=== PATIENT | female | born 1945 | race Caucasian/White ===

== ENCOUNTER → 2016-11-21 | Outpatient (CLI) | payer OTHER ==
[~2016-11-21] MED LIST: OMEP40CA PO; PRAV40TA2 PO
--- NOTE | 2016-11-21 14:25 | DIAGNOSTIC IMAGING REPORT ---
ULTRASOUND OF THE THYROID GLAND CLINICAL HISTORY: Thyromegaly. COMPARISON STUDY: Thyroid ultrasound dated 10/27/15. TECHNIQUE: Real-time, grayscale, and color flow sonography of the thyroid gland is performed utilizing a high-frequency linear transducer. Images are reviewed in the transverse and longitudinal planes. FINDINGS: Right lobe: The right lobe of the thyroid gland is normal in size and homogeneous in echotexture, measuring 4.3 x 1.7 x 1.5 cm. A 3 mm hypoechoic nodule is seen in the upper pole and a 5 mm colloid cyst is noted in the lower pole. Left lobe: The left lobe of the thyroid gland is normal in size and homogeneous in echotexture, measuring 4.5 x 1.3 x 1.0 cm. 2 hypoechoic nodules are identified measuring up to 5 mm. Isthmus: The thyroid isthmus is normal in appearance and measures 0.4 cm in AP diameter. IMPRESSION: 1. The thyroid gland is normal in size and homogeneous in echotexture. 2. Scattered subcentimeter nodules and a colloid cyst are unchanged from previous. Electronically signed by: Grabiel Salmon M.D. 11/21/2016 2:24 PM Dictated Date/Time: 11/21/2016 2:22 PM
== END | disposition home or self-care (01) ==
LOC: C.ULTR 13:42
PROVIDERS: ATTEND Dermatology
DX: E04.9 Nontoxic goiter, unspecified (principal)

== ENCOUNTER → 2016-12-22 | Outpatient (CLI) | payer OTHER ==
[2016-12-22 17:29] LABS: ALT/SGPT 26 U/L (12-78); BLOOD UREA NITROGEN 13 mg/dl (7-18); CALCIUM 9.3 mg/dl (8.5-10.1); CARBON DIOXIDE 27 mmol/L (21-32); CHLORIDE 105 mmol/L (98-107); CHOLESTEROL 209 mg/dl (0-200); CREATININE 0.93 mg/dl (0.60-1.20); GLUCOSE 80 mg/dl (70-99); SODIUM 139 mmol/L (136-145); TRIGLYCERIDES 117 mg/dl (0-150); VERY LOW DENSITY LIPOPROT CALC 23 mg/dl
[2016-12-22 17:33] LABS: ALB/GLOB RATIO 1.2 (0.9-2); ALKALINE PHOSPHATASE 94 U/L (45-117); AST/SGOT 18 U/L (15-37); CHOLESTEROL/HDL RATIO 2.8; HDL CHOLESTEROL 76 mg/dl; LDL CHOLESTEROL CALCULATED 110 mg/dl
== END ==
LOC: C.LABBFT 13:52
PROVIDERS: ATTEND Internal Medicine
DX: Z11.59 Encounter for screening for other viral diseases (principal); E78.5 Hyperlipidemia, unspecified

== ENCOUNTER → 2017-04-05 | Outpatient (CLI) | payer OTHER ==
--- NOTE | 2017-04-05 15:38 | MAMMOGRAPHY REPORT ---
BILATERAL DIGITAL SCREENING MAMMOGRAM WITH CAD: 04/05/2017 CLINICAL HISTORY: Routine screening. Patient has no complaints. TECHNIQUE: Current study was also evaluated with a Computer Aided Detection (CAD) system. Bilateral CC and MLO views were obtained. COMPARISON: Comparison is made to exams dated: 04/04/2016 mammogram, 04/01/2015 mammogram, 03/31/2014 [facility] mogram, 03/29/2013 mammogram, 03/22/2012 mammogram, and 03/16/2012 mammogram - [facility] er. BREAST COMPOSITION: There are scattered areas of fibroglandular density in both breasts. FINDINGS: No suspicious masses, calcifications, or areas of architectural distortion are noted in ei ther breast. There has been no significant interval change compared to prior exams. Scattered bilater al benign-appearing calcifications are not significantly changed. IMPRESSION: ACR BI-RADS CATEGORY 2: BENIGN There is no mammographic evidence of malignancy. A 1 year screening mammogram is recommended. The pa tient will receive written notification of the results. Approximately 10% of breast cancers are not detected with mammography. A negative mammographic report should not delay biopsy if a clinically suggestive mass is present. Ailyn Dawn M.D. ah/:04/05/2017 15:19:16 Hot Saw Helper: Keyana NICHOLS(R)(M), [facility] letter sent: Normal 1/2 BI-RADS Code: ACR BI-RADS Category 2: Benign
== END | disposition home or self-care (01) ==
LOC: C.MAMM 14:21
PROVIDERS: ATTEND Internal Medicine
DX: Z12.31 Encounter for screening mammogram for malignant neoplasm of breast (principal)

== ENCOUNTER → 2017-12-05 | Outpatient (CLI) | payer OTHER ==
--- NOTE | 2017-12-05 13:48 | DIAGNOSTIC IMAGING REPORT ---
SOFT TISS HEAD/NECK-THYROID CLINICAL HISTORY: 72 years-old Female with MULTIPLE THYROID NODULES E04.2. Follow-up study in a patient with multiple thyroid nodules COMPARISON: Thyroid ultrasound 11/21/2016 TECHNIQUE: Multiple real time sonographic images of the thyroid were obtained accessing shaw scale appearance and color doppler flow. FINDINGS: MEASUREMENTS: Right lobe: 4.0 x 1.6 x 1.3 cm Left lobe: 4.3 x 1.2 x 1.0 cm Isthmus: 0.4 cm PARENCHYMA: The thyroid parenchymal echotexture is generally homogeneous. NODULES: There are several subcentimeter hypoechoic and cystic-appearing lesions present bilaterally with the cystic lesions demonstrating internal echogenic nonshadowing foci suggesting colloid cysts measuring up to 0.4 cm. No suspicious thyroid nodules are identified. IMPRESSION: 1. Generally homogeneous appearance of the thyroid. 2. Several hypoechoic lesions of the bilateral thyroid lobes suggests colloid cysts. No suspicious thyroid nodules are identified. The above report was generated using voice recognition software. It may contain grammatical, syntax or spelling errors. Electronically signed by: Alfie Babb M.D. 12/05/2017 1:47 PM Dictated Date/Time: 12/05/2017 1:44 PM
== END | disposition home or self-care (01) ==
LOC: C.ULTR 13:15
DX: E04.2 Nontoxic multinodular goiter (principal)

== ENCOUNTER → 2017-12-28 | Outpatient (CLI) | payer OTHER ==
[2017-12-28 16:35] LABS: BASO % 0.6 %; BASO ABS # 0.05 K/uL (0-0.2); EOS % 1.3 %; EOS ABS # 0.12 K/uL (0-0.5); HEMATOCRIT 44.8 % (37-47); HEMOGLOBIN 14.6 g/dL (12.0-16.0); IG# 0.02 K/uL (0.00-0.02); LYMPH % 29.8 %; LYMPH ABS # 2.68 K/uL (1.2-3.4); MEAN CORPUSCULAR HGB CONC 32.6 g/dl (32-36); MEAN PLATELET VOLUME 10.6 fL (7.4-10.4); MONO % 8.7 %; MONO ABS # 0.78 K/uL (0.11-0.59); NEUT % 59.4 %; NEUT ABS # 5.33 K/uL (1.4-6.5); PLATELET COUNT 258 K/uL (130-400); RED CELL DISTRIBUTION WIDTH CV 13.5 % (11.5-14.5); RED CELL DISTRIBUTION WIDTH SD 45.5 fL (36.4-46.3); WHITE BLOOD COUNT 8.98 K/uL (4.8-10.8)
[2017-12-28 16:42] LABS: ALBUMIN 3.9 gm/dl (3.4-5.0); ALT/SGPT 25 U/L (12-78); AST/SGOT 19 U/L (15-37); BLOOD UREA NITROGEN 16 mg/dl (7-18); CARBON DIOXIDE 26 mmol/L (21-32); CHOLESTEROL 228 mg/dl (0-200); GLUCOSE 85 mg/dl (70-99); POTASSIUM 4.1 mmol/L (3.5-5.1); SODIUM 136 mmol/L (136-145)
[2017-12-28 16:52] LABS: ALKALINE PHOSPHATASE 96 U/L (45-117); LDL CHOLESTEROL CALCULATED 121 mg/dl; TOTAL PROTEIN 7.4 gm/dl (6.4-8.2)
== END | disposition home or self-care (01) ==
LOC: C.LABBFT 13:28
PROVIDERS: ATTEND Internal Medicine
DX: E78.5 Hyperlipidemia, unspecified (principal)

== ENCOUNTER 2020-12-21 05:04 | Observation (INO) ==
--- NOTE | 2020-11-20 11:22 | PAT Medication Instructions ---
Medication Instructions Date of Service November 20, 2020 Home Medications Medication Instructions Recorded warfarin 5 mg tablet 5 mg PO .COMPLEX #120 tab 10/01/20 3-in-1 Commode #1 ea 10/21/20 3-in-1 Commode #1 ea 10/21/20 Wheeled Walker #1 ea 10/21/20 warfarin 5 mg tablet 5 mg PO .COMPLEX cholecalciferol (vitamin D3) 2,000 unit PO BID naproxen sodium [Aleve] 220 mg PO BID PRN pravastatin 40 mg PO HS ASK your surgeon for instructions naproxen sodium [Aleve] 220 mg PO BID PRN ASK your prescriber and surgeon warfarin 5 mg tablet 5 mg PO .COMPLEX DO NOT take the morning of surgery cholecalciferol (vitamin D3) 2,000 unit PO BID Take evening before surgery cholecalciferol (vitamin D3) 2,000 unit PO BID pravastatin 40 mg PO HS Other Notes If you have any questions please call us at [phone] or [phone] or [phone] or [phone]
--- NOTE | 2020-11-23 10:13 | Anesthesiology Consultation ---
Date of Service November 23, 2020 Assessment & Plan (1) Encounter for pre-operative examination: - Per assessment on 11/23: Travel screen negative. No known COVID-19 positive contacts or current COVID-19 related symptoms. Surgeon arranging preop COVID testing (scheduled 12/14; RD). Awaiting results. - PCP office visit: 09/30/20: Due for DEXA scan update (order placed). Aware of upcoming hip surgery. - Check coags AM DOS Chart Review Chart Review: Acceptable Risk for Surgery and Patient seen in Pre Admission Testing Teaching & Discussion Pre-Anesthesia Teaching/Discussion Notes: Instructed NPO after midnight before surgery,except medications with 15 cc of water. Medication instructions provided according to the PAT guidelines. History Surgery Operation Date: 12/21/20 10:55 Proposed Procedures p Left Total Hip Arthroplasty - Regis Chavez MD Height/Weight Height: 5 ft 4 in Weight: 83.6 kg Allergies Allergy/AdvReac Type Severity Reaction Status Date / Time No Known Allergies Allergy Mild Verified 11/17/20 09:48 Medications Home Medications Medication Instructions Recorded Confirmed Last Taken warfarin 5 mg tablet 5 mg PO .COMPLEX #120 tab 10/01/20 11/17/20 Unknown 3-in-1 Commode #1 ea 10/21/20 10/21/20 Unknown 3-in-1 Commode #1 ea 10/21/20 10/21/20 Unknown Wheeled Walker #1 ea 10/21/20 10/21/20 Unknown cholecalciferol (vitamin D3) 2,000 unit PO BID 11/17/20 11/17/20 Unknown naproxen sodium [Aleve] 220 mg PO BID PRN 11/17/20 11/17/20 Unknown pravastatin 40 mg PO HS 11/17/20 11/17/20 Unknown Past Medical History Medical History Chronic obstructive pulmonary disease stable Dvt femoral (deep venous thrombosis) Recurrent RLE (unprovoked)- remote hx GERD (gastroesophageal reflux disease) controlled Hearing loss Hyperlipidemia Migraine hx Osteoporosis Pulmonary nodule Per records Exercise / Class Metabolic Activity III < 4 Walking/Shop/Light housework Past Family History Family History Mother Ovarian cancer Alzheimer disease Glaucoma Family/Other Diabetes COUSINS Coronary heart disease Hypercholesterolemia Breast cancer Hypertension Thyroid disorder Father Lung cancer Brother Celiac disease Son Substance abuse Other Family history non-contributory Denies family history of Prostate cancer Myocardial infarction Colorectal cancer Past Surgical History Surgical History History of colonoscopy History of esophagogastroduodenoscopy (EGD) No history of previous surgery Past Anesthesia History No Hx of Anesthesia Complications and No Family Hx of Anesthesia Complications Social History Smoking Status: Former smoker Do You Dip or Chew Tobacco: No Smoking End Date: Quit 2000 (hx PPD x 40 years) Hx Alcohol Use: No Hx Substance Use: No Review of Systems No snoring. Patient denies chest pain, shortness of breath, fever, chills, cough, wheezing, palpitations. Physical Exam Vital Signs VITALS BP 129/70 P 74 TEMP 97.9 SP02 93%RA RESP 16 PHYSICAL Full neck and c-spine range of motion. Full TMJ range of motion. TMD 3 finger breaths Mallampati Score 3 Dentition: full dentures upper/lower Lungs: clear throughout to auscultation Cardiac: regular rate and rhythm, no murmurs noted Spine: normal Carotid arteries: negative bruit Extremities: no edema Testing Laboratory Results 11/23/20 11:36 11/23/20 10:36 PT 17.2 Seconds (9.0-12.0) H 11/23/20 11:36 INR 1.8 (0.9-1.1) H 11/23/20 11:36 APTT 31.8 Seconds (21.0-31.0) H 11/23/20 11:36 Blood Type A Positive 11/23/20 11:36 Antibody Screen NEGATIVE 11/23/20 11:36 Electrocardiogram Date: 11/23/20 Findings: + NSR @ (68) Chest X-Ray Date: 11/23/20 FINDINGS: Lung volumes are normal. Lungs are clear. There is no pneumothorax or pleural effusion. Cardiac size is normal. Mediastinal contours are normal. There is no evidence for pulmonary edema. Emphysema is better depicted on prior chest CT. IMPRESSION: No acute cardiopulmonary findings. Emphysema.
--- NOTE | 2020-11-23 11:09 | XRay Report ---
XR chest Pre-admission PA/Lat CLINICAL HISTORY: Preoperative evaluation. COMPARISON STUDY: Chest CT March 12, 2020. FINDINGS: Lung volumes are normal. Lungs are clear. There is no pneumothorax or pleural effusion. Car diac size is normal. Mediastinal contours are normal. There is no evidence for pulmonary edema. Emphy sema is better depicted on prior chest CT. IMPRESSION: 1. No acute cardiopulmonary findings. 2. Emphysema. ACT 112: Negative or not required by law. Electronically signed by: Goldy Parada M.D. 11/23/2020 11:07 AM
[2020-11-23 12:06] LABS: Basophils # (auto) 0.05 K/uL (0-0.2); Basophils % (auto) 0.7 %; Eosinophils # (auto) 0.15 K/uL (0-0.5); Eosinophils % (auto) 2.2 %; Hematocrit (blood only) 46.8 % (37-47); Hemoglobin 15.4 g/dL (12.0-16.0); Immature Granulocytes # (auto) 0.03 K/uL (0.00-0.02); Immature Granulocytes % (auto) 0.4 %; Lymphocytes # (auto) 1.66 K/uL (1.2-3.4); Lymphocytes % (auto) 24.7 %; Mean Corpuscular Hemoglobin 30.8 pg (25-34); Mean Corpuscular Hgb Conc 32.9 g/dL (32-36); Mean Corpuscular Volume 93.6 fL (80-100); Monocytes # (auto) 0.52 K/uL (0.11-0.59); Monocytes % (auto) 7.7 %; Neutrophils % (auto) 64.3 %; Platelet Count 252 K/uL (130-400); RDW Coefficient of Variation 13.7 % (11.5-14.5); White Blood Count 6.71 K/uL (4.8-10.8)
[2020-11-23 12:16] LABS: INR 1.8 (0.9-1.1); Partial Thromboplastin Ratio 1.2; Partial Thromboplastin Time 31.8 Seconds (21.0-31.0); Prothrombin Time 17.2 Seconds (9.0-12.0)
[2020-11-23 13:31] LABS: BUN Creatinine Ratio 14.3 (10-20); Calcium 9.3 mg/dl (8.5-10.1); Creatinine Clr Calc Pharmacy 50.3 ml/min; Est GFR (African American) 63.1; Est GFR (Non-African American) 54.4; Potassium 4.3 mmol/L (3.5-5.1)
--- NOTE | 2020-11-23 14:24 | Electrocardiogram Report ---
Test Reason : Blood Pressure : / mmHG Vent. Rate : 068 BPM Atrial Rate : 068 BPM P-R Int : 188 ms QRS Dur : 078 ms QT Int : 422 ms P-R-T Axes : 078 066 075 degrees QTc Int : 448 ms Normal sinus rhythm Normal ECG When compared with ECG of 08-AUG-2018 19:29, No significant change was found Confirmed by Jackson Doyle ([id number]) on 11/23/2020 2:23:38 PM Referred By: Regis Chavez Confirmed By:Jackson Doyle
--- NOTE | 2020-12-18 20:25 | History and Physical Report ---
DATE OF ADMISSION: 12/21/2020 CHIEF COMPLAINT: Persistent left hip pain and discomfort. HISTORY OF PRESENT ILLNESS: The patient is a 75-year-old female who presents now for surgical treatment of her left hip. She has a several year history of gradually increasing left hip pain and discomfort. I saw her several months ago, put a shot on the lateral side of her hip, which helped her just a little bit. She continues to be bothered by pain. It has increased significantly over the past year. She has had to resort to using a cane to get around due to the pain. The pain is mostly in the groin and lateral hip area. No numbness or radicular symptoms. She limps more as the day goes on. She would really like to have this fixed. PAST MEDICAL HISTORY: Significant for, 1. Questions DVT in the past, currently on Coumadin. 2. Elevated cholesterol. 3. COPD. 4. Hypothyroidism. 5. Obesity with BMI of 32. PREVIOUS SURGERIES: None. ALLERGIES: None. CURRENT MEDICATIONS: Include, 1. Vitamin D3. 2. Pravastatin. 3. Coumadin 5 mg a day. SOCIAL HISTORY: A 75-year-old female. Lives by herself. Lives in [place]. Does not smoke. No significant alcohol intake. FAMILY HISTORY: Noncontributory. REVIEW OF SYSTEMS: Negative for diabetes. Denies any chest pain or shortness of breath. She has a questionable history of DVT. No known clotting disorders. She is on Coumadin. PHYSICAL EXAMINATION: GENERAL: Reveals a pleasant elderly female. Looks to be in reasonable health. HEENT: Benign. NECK: Supple, no lymphadenopathy. LUNGS: Clear to auscultation. HEART: Has a regular rate and rhythm. ABDOMEN: Soft, nontender, nondistended. EXTREMITIES: Grossly neurovascularly intact except as follows: Examination of the left hip reveals the patient walks with a markedly antalgic gait. Comes in using a cane. She clearly limps on the left side. Leg lengths appear pretty equal. She has got pain and stiffness with any type of hip motion, particularly internal rotation. I can internally rotate to neutral. Negative straight leg raise. No knee effusion. She is neurologically intact. X-RAYS: X-rays of the left hip were reviewed. It shows advanced left hip DJD. She has complete loss of superior joint space. Diffuse osteopenia. 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 This is significantly limiting her ability to maintain an active lifestyle and independent lifestyle, and she would like to have this fixed. PLAN: We are going to take her to the operating room and do a left total hip replacement. If there is an abductor mechanism avulsion, we will try and repair that as well. The risks and benefits of left total hip replacement were explained to the patient including but not limited to DVT, PE, , infection, neurological injury, vascular injury, bleeding problem, pain, limited range of motion, stiffness, failure to relieve her symptoms, incomplete relief of symptoms, need for further surgery in the future, fracture, leg length inequality, nerve palsy, dislocation, etc. The patient understands and desires to proceed. Informed consent was obtained. We will have a cemented stem available as her bone is pretty osteoporotic on x-ray. She will stop her Coumadin 5 days preop. We will likely put her on some prophylactic Lovenox right after surgery until the Coumadin is more therapeutic. As far as discharge plans, she will likely need to go to rehab for a while.
[2020-12-21] MEDS ORDERED: METOCLOPRAMIDE HCL 10 MG TABLET PO SCH (06:00)
[2020-12-21] MEDS ORDERED: FAMOTIDINE 20 MG TAB PO SCH (06:00)
[2020-12-21] MEDS ORDERED: LR 500ML BOLUS, THEN 15ML/HR IV SCH (06:00)
[2020-12-21] MEDS ORDERED: ACETAMINOPHEN 500 MG TAB PO SCH (06:00)
[2020-12-21] MEDS ORDERED: ceFAZolin 2000MG 2,000 MG/15 ML SYR IV SCH (06:00)
[2020-12-21] MEDS ORDERED: GABAPENTIN 300 MG CAP PO SCH (06:00)
[2020-12-21] MEDS ORDERED: LR 60ML/HR IV SCH (06:00)
[2020-12-21 06:26] LABS: Partial Thromboplastin Ratio 0.9; Partial Thromboplastin Time 24.2 Seconds (21.0-31.0); Prothrombin Time 10.3 Seconds (9.0-12.0)
[2020-12-21] MEDS ORDERED: BACITRACIN INJ 50,000 UNIT VIAL ONE (06:31)
[2020-12-21] MEDS ORDERED: BUPIVACAINE/EPINEPHRINE 0.5% MPF 1:200,000 30 ML VIAL ONE (06:31)
[2020-12-21] MEDS ORDERED: BUPIVACAINE 0.5 % 5 MG/1 ML PF 10ML VIAL ONE (06:40)
[2020-12-21] MEDS ORDERED: PROPOFOL IV EMULSION 10 MG/ML 20 ML VIAL IV ONE (06:43)
[2020-12-21] MEDS ORDERED: MIDAZOLAM HCL 1 MG/ML 2ML VIAL ONE (06:43)
[2020-12-21] MEDS ORDERED: fentaNYL citrate 100 MCG/2 ML VIAL ONE (06:43)
[2020-12-21] MEDS ORDERED: LIDOCAINE HCL 2% 2 ML VIAL/AMP(20MG/ML) INFIL ONE (06:43)
--- NOTE | 2020-12-21 06:51 | History & Physical Bridge Note ---
Date of Service December 21, 2020 History & Physical Bridge Note I have examined the patient, reviewed the History & Physical and in the interval since the performance of the History & Physical I have noted the following changes of clinical significance: no changes noted
[2020-12-21] MEDS ORDERED: fentaNYL citrate 100 MCG/2 ML VIAL IV PRN (07:16)
[2020-12-21] MEDS ORDERED: ePHEDrine sulfate 50 MG/ML AMP IV PRN (07:16)
[2020-12-21] MEDS ORDERED: ATROPINE SULFATE 0.1 MG/ML 10ML SYR IV PRN (07:16)
[2020-12-21] MEDS ORDERED: ONDANSETRON INJ 2 MG/ML 2 ML VIAL IV PRN ×2 (07:16→09:46)
[2020-12-21] MEDS ORDERED: TRANEXAMIC ACID / 0.7% NACL 1000MG/100ML BAG IV ONE (07:25)
[2020-12-21] MEDS ORDERED: TRANEXAMIC ACID / 0.7% NACL 1,000 MG/100 ML BAG IV ONE (07:27)
[2020-12-21] MEDS ORDERED: ePHEDrine sulfate 50 MG/ML SYR ONE (07:40)
--- NOTE | 2020-12-21 09:04 | Operative Report ---
Post Operative Report Pre & Post Diagnosis Operation Date: 12/21/20 07:00 Pre-Op Diagnosis: Left Hip Degenerative Joint Disease Post-Op Diagnosis: Left Hip Degenerative Joint Disease I identified the patient and participated in the time-out.: Yes Procedure Operation Date: 12/21/20 07:00 Actual Procedures p Left hybrid total Hip Arthroplasty, Cemented(Left) - Regis Chavez MD Surgeon Regis Chavez MD Box Toe Cementer JANET Benoit Estimated Blood Loss 200 Findings Consistent with Post-Op Diagnosis Operative findings were advanced left hip DJD. She had a very osteopenic bone. She had advanced grade 4 [id number] disease. Fairly large anterior acetabular osteophyte. Moderate-sized joint effusion. Fluids 1100 cc. Specimens Left femoral head sent for pathology. Drains None. Complications none Disposition Accompanied Patient To Recovery: Yes Disposition: Recovery Room Indications Patient is 75-year-old female has had a several year history of increasing left hip pain discomfort describes gotten worse to the point where she had use a cane to get around. She has difficulty ambulating and living in independent lifestyle as she continues to live by herself. X-rays show advanced left hip arthritis. She elected proceed with total hip arthroplasty. Description of Procedure Operative implants consist of: 1. Biomet G7 size 52 mm acetabular shell. 2. 6.5 cancellous acetabular screws 135 mm length 120 mm length. 3. [place] hole medication coordinator. 4. Highly cross-linked polyethylene liner with a 52 mm outer diameter and 36 mm diameter. 5. DePuy Caret size 5 standard femoral cemented stem. 6. +8.5/36 mm metal articular ball. 7. 11 mm distal cement centralizer. 8. Small cement restrictor. The patient was taken to the operating room, identified, placed on the operating table supine position but all contact areas were properly padded. IV an tibiotics tried by anesthesia team. A spinal anesthetic and been implemented in the holding area. Miller catheter was placed in sterile fashion. Patient then placed in the right lateral decubitus position. An axillary roll was placed. Stulberg hip positioner was used for positioning. Left hip and leg were then prepped and draped in usual sterile fashion. A posterior lateral approach of the left hip was then performed to a curvilinear incision centered over the greater trochanter. Sharp dissection was got through subcutaneous tissues down to level the IT band gluteal fascia. She had a fairly thick subcutaneous fat envelope. The IT band gluteal fascia then incised longitudinally in line with skin incision. The underlying greater truck bursa was excised. The piriformis and external rotators were tagged and taken off the posterior aspect the hip joint. Great care was taken throughout the procedure protect the sciatic nerve at all times. A posterior capsulotomy was then performed leaving a large flap for later repair. Hip was internally rotated and dislocated. Femoral neck osteotomy cut was made with Final Cut about 15 mm above the lesser trochanter. She had a very valgus neck with very little offset. The femur was retracted anteriorly. Attention drawn the acetabulum. The acetabular labrum was excised per the pulmonary fat was excised. Sequential reaming the acetabular was then performed again with a size 43 and progressing up to 51. I did reamed this a little bit with the 52 reamer. Her bone was pretty osteopenic. A 52 mm Biomet G7 acetabular shell was then placed in about 40 degrees lateral opening and 20 degrees of anteversion. Was fixed with two 6.5 cancellous acetabular screws. Some fairly large anterior osteophytes were removed. Trial liner was placed. Attention drawn the femur. The proximal femur was entered with a cookie-cutter followed by canal finder. I broached begin the size at 2 and progressing up to 5. We got pretty good fit wi th a 5 but her bone was very osteopenic. I did not want a breach to the cortex as we stop there. We trialed the hip and the +8.5 the hip provided appropriate soft tissue tension and excellent stability. She probably did increase her offset but did not increase the length. We elect to place these implants. All trial implants were removed. An apex hole medication coordinator was placed. Highly cross-linked polyethylene liner was placed. A small cement restrictor was then placed down the IM canal. The IM canal was washed. I dried it as best as possible. A double batch [place] G cement was then mixed and injected in the canal and a size 5 Caret cemented/collared femoral stem with a standard offset neck angle was then placed. I held this until the cement hardened. We then placed a 8.5/36 mm metal articular ball and hip was located. Was found to be stable. Attention drawn toward closing. Nupathe wounds irrigated with copious amounts of pulsatile lavage solution. I injected locally with 60 cc of half percent Marcaine with epinephrine. The posterior capsule and external rotators were then repaired through drill holes in the posterior trochanter with #2 Tycron suture. The IT band gluteal fascia then closed in 1 PDS suture running fashion for subcutaneous tissue then closed with 2 layers with a deep layer #2 Vicryl suture in the subcutaneous tissues with 2 Dexon suture in a buried interrupted fashion the skin was closed skin yao. Leg was then cleaned and dried. A sterile Prevena VAC dressing was applied due to her very thick soft tissue envelope and increased risk for drainage. The patient was then transferred to the recovery room in stable condition. Patient tolerated procedure well and there are no complications. Ryan Benoit, my physician fast food sales assistant, was present for the entire procedure. His assistance was essential and required for appropriate patient positioning, prepping and draping, surgical exposure, performing the technical details of the operation, placement the implants, closure of the wound, and placement of the sterile bandage. I attest to the content of the Intraoperative Record and any orders documented therein. Any exceptions are noted below.
--- NOTE | 2020-12-21 09:20 | XRay Report ---
AP PELVIS, CROSSTABLE LATERAL LEFT HIP History: Left total hip arthroplasty. Degenerative arthritis. Postop. FINDINGS: The patient is status post a left total hip arthroplasty. The hardware is intact. No fractu re or dislocation. Skin yao are in place. IMPRESSION: Left total hip arthroplasty. No evidence for hardware complication. ACT 112: Negative or not required by law. Electronically signed by: Derik Linares M.D. 12/21/2020 9:18 AM
--- NOTE | 2020-12-21 09:32 | Anesthesiology Progress Note ---
Date of Service December 21, 2020 Anesthesia Post Procedure Vital Signs Vital Signs: Temp Pulse Pulse Resp BP BP Pulse Ox 12/21/20 09:20 71 18 120/54 L 94 12/21/20 09:10 75 14 110/57 L 98 12/21/20 09:00 75 13 131/59 L 100 12/21/20 08:50 36.9 C 85 16 111/57 L 97 12/21/20 06:27 36.8 C 54 L 20 145/67 H 92 12/21/20 05:47 36.6 C 76 20 158/82 H 93 Transfer of Care Handoff Completed per policy Notes Mental Status: alert / awake / arousable and participated in evaluation Nausea / Vomiting: adequately controlled Pain: adequately controlled Airway Patency, RR, SpO2: stable & adequate BP & HR: stable & adequate Hydration State: stable & adequate Neuraxial Anesthesia: was administered and sensory block is resolving Anesthetic Complications: no major complications apparent and Pt Satisfied with anesthetic care
[2020-12-21] MEDS ORDERED: NALOXONE HCL 0.4 MG/1 ML VIAL/CARP IV PRN (09:46)
[2020-12-21] MEDS ORDERED: bisacodyL 10 MG SUPP PR PRN (09:46)
[2020-12-21] MEDS ORDERED: HYDROmorphone INJ 0.5 MG/0.5 ML SYR IV PRN (09:46)
[2020-12-21] MEDS ORDERED: METOCLOPRAMIDE HCL INJ 5 MG/ML 2 ML VIAL IV PRN (09:46)
[2020-12-21] MEDS ORDERED: MAGNESIUM HYDROXIDE SUSP 30 ML UDC PO PRN (09:46)
[2020-12-21] MEDS ORDERED: traMADol HCL 50 MG TABLET PO PRN (09:46)
[2020-12-21] MEDS: SODIUM CHLORIDE 0.9% 1000ML 1,000 ML IV SCH ×2 (10:09→21:26)
[2020-12-21] MEDS: CHOLECALCIFEROL 1,000 UNITS 25 MCG TAB PO SCH ×2 (11:02→21:26)
[2020-12-21] MEDS: KETOROLAC TROMETHAMINE 15 MG/ML VIAL IV SCH ×2 (11:02→17:36)
[2020-12-21] MEDS: MULTIVITAMIN TAB PO SCH (11:02)
[2020-12-21] MEDS: DOCUSATE SODIUM 100 MG CAP PO SCH ×2 (11:02→21:26)
[2020-12-21] MEDS: ACETAMINOPHEN 500 MG TAB PO SCH ×2 (14:03→22:28)
[2020-12-21] MEDS ORDERED: TRANEXAMIC ACID / 0.7% NACL 1,000 MG/100 ML BAG IV SCH (14:52)
--- NOTE | 2020-12-21 15:10 | Progress Notes ---
DATE: 12/21/2020 SUBJECTIVE: A 75-year-old white female postop from a left hybrid total hip arthroplasty. She is doing well. Really not having any pain yet. No chest pain or shortness of breath. Not feeling dizzy or lightheaded. OBJECTIVE: VITAL SIGNS: Temperature 36.3. Vital signs stable. GENERAL: Shows a pleasant elderly female. She is sitting up in bed, looks pretty comfortable. LUNGS: Clear to auscultation. HEART: Has a regular rate and rhythm. ABDOMEN: Soft, nontender, nondistended. EXTREMITIES: Grossly neurovascularly intact except as follows. Examination of the left leg reveals the leg to be appropriately aligned. Leg lengths are equal. Dressing is clean, dry and intact. Thigh is soft and supple. She can dorsiflex and plantarflex her foot appropriately. X-RAYS: X-rays of the left hip from recovery room reviewed. It shows left hybrid total hip arthroplasty. Components looked to be in good position. No signs of problems. ASSESSMENT: A 75-year-old female postop from a hybrid total hip replacement, doing pretty well. Her pain is controlled. Hip is located. She is neurologically intact. PLAN: 1. DVT prophylaxis including thigh-high TEDs, SCDs, and back on her Coumadin starting tonight. We will give her a loading dose of 7.5. Check an INR in the morning. 2. PT/OT. Weight bear as tolerated. Left total hip protocol. 3. Pain control, doing okay with current pain regimen. 4. IV antibiotics x24 hours. 5. Disposition: She lives by herself and she is going to need a rehab stay or detention facility stay. We will have social media marketer working on this.
[2020-12-21] MEDS: ceFAZolin 2000MG 2,000 MG/15 ML SYR IV SCH (15:59)
[2020-12-21] MEDS ORDERED: WARFARIN SOD 7.5 MG TAB PO ONE (16:00)
[2020-12-21] MEDS: FERROUS GLUCONATE 324 MG TAB PO SCH (17:36)
[2020-12-21] MEDS: ASCORBIC ACID 500 MG TAB PO SCH (17:36)
[2020-12-21] MEDS: SENNA 8.6 MG TAB PO SCH (21:26)
[2020-12-21] MEDS: PRAVASTATIN SOD 40 MG TAB PO SCH (21:26)
[2020-12-22] MEDS: ceFAZolin 2000MG 2,000 MG/15 ML SYR IV SCH (00:17)
[2020-12-22] MEDS: KETOROLAC TROMETHAMINE 15 MG/ML VIAL IV SCH ×5 (00:17→23:54)
[2020-12-22] MEDS: SODIUM CHLORIDE 0.9% 1000ML 1,000 ML IV SCH (05:59)
[2020-12-22] MEDS: ACETAMINOPHEN 500 MG TAB PO SCH ×3 (05:59→21:39)
[2020-12-22 06:34] LABS: Basophils # (auto) 0.02 K/uL (0-0.2); Basophils % (auto) 0.2 %; Eosinophils # (auto) 0.07 K/uL (0-0.5); Eosinophils % (auto) 0.6 %; Hematocrit (blood only) 39.4 % (37-47); Hemoglobin 13.4 g/dL (12.0-16.0); Immature Granulocytes # (auto) 0.01 K/uL (0.00-0.02); Immature Granulocytes % (auto) 0.1 %; Lymphocytes # (auto) 2.11 K/uL (1.2-3.4); Lymphocytes % (auto) 18.5 %; Mean Corpuscular Hemoglobin 30.9 pg (25-34); Mean Platelet Volume 9.6 fL (7.4-10.4); Monocytes # (auto) 1.02 K/uL (0.11-0.59); Monocytes % (auto) 8.9 %; Neutrophils # (auto) 8.19 K/uL (1.4-6.5); Neutrophils % (auto) 71.7 %; Platelet Count 210 K/uL (130-400); RDW Coefficient of Variation 13.8 % (11.5-14.5); RDW Standard Deviation 45.9 fL (36.4-46.3); Red Blood Count 4.33 M/uL (4.2-5.4); White Blood Count 11.42 K/uL (4.8-10.8)
[2020-12-22 06:37] LABS: INR 1.2 (0.9-1.1); Prothrombin Time 11.9 Seconds (9.0-12.0)
[2020-12-22 07:05] LABS: BUN Creatinine Ratio 13.4 (10-20); Calcium 8.6 mg/dl (8.5-10.1); Creatinine Clr Calc Pharmacy 57.1 ml/min; Est GFR (African American) 73.5; Est GFR (Non-African American) 63.4; Potassium 3.7 mmol/L (3.5-5.1)
[2020-12-22] MEDS ORDERED: dexAMETHasone 4 MG TAB PO SCH (08:00)
--- NOTE | 2020-12-22 08:04 | Anesthesiology Progress Note ---
Date of Service December 22, 2020 Anesthesia Post Procedure Vital Signs Vital Signs: Temp Pulse Pulse Resp BP Pulse Ox 12/22/20 07:25 36.5 C 75 18 153/78 H 94 12/22/20 02:25 36.7 C 90 16 160/87 H 91 12/21/20 22:38 36.6 C 82 15 157/80 H 93 12/21/20 19:41 36.4 C L 85 16 130/69 92 12/21/20 15:31 36.3 C L 70 18 145/83 H 93 12/21/20 12:48 36.3 C L 79 16 120/69 95 12/21/20 11:41 36.2 C L 67 18 103/64 94 12/21/20 10:48 36.3 C L 83 16 120/70 93 12/21/20 10:30 36.3 C L 70 16 101/59 L 93 12/21/20 10:12 61 16 121/62 95 12/21/20 09:45 66 16 105/61 92 12/21/20 09:40 36.5 C 61 18 121/51 L 94 12/21/20 09:30 36.5 C 69 18 110/64 94 12/21/20 09:20 71 18 120/54 L 94 12/21/20 09:10 75 14 110/57 L 98 12/21/20 09:00 75 13 131/59 L 100 12/21/20 08:50 36.9 C 85 16 111/57 L 97 Notes Mental Status: alert / awake / arousable Nausea / Vomiting: adequately controlled Pain: adequately controlled Airway Patency, RR, SpO2: stable & adequate BP & HR: stable & adequate Hydration State: stable & adequate Neuraxial Anesthesia: was administered and sensory block resolved Anesthetic Complications: no major complications apparent and Pt Satisfied with anesthetic care
[2020-12-22] MEDS: DOCUSATE SODIUM 100 MG CAP PO SCH ×2 (08:42→20:43)
[2020-12-22] MEDS: ASCORBIC ACID 500 MG TAB PO SCH ×2 (08:42→17:18)
[2020-12-22] MEDS: FERROUS GLUCONATE 324 MG TAB PO SCH ×2 (08:42→17:18)
[2020-12-22] MEDS: MULTIVITAMIN TAB PO SCH (08:43)
[2020-12-22] MEDS: CHOLECALCIFEROL 1,000 UNITS 25 MCG TAB PO SCH ×2 (08:43→20:44)
--- NOTE | 2020-12-22 10:27 | Progress Notes ---
DATE: 12/22/2020 SUBJECTIVE: A 75-year-old white female postop day 1 from a left hybrid total hip arthroplasty. She is doing well. Reports no pain. No chest pain or shortness of breath. Not feeling dizzy or lightheaded. OBJECTIVE: VITAL SIGNS: Temperature is 36.5. Vital signs stable. GENERAL: Shows a pleasant elderly female. She is sitting up in her bedside chair, looks quite comfortable. EXTREMITIES: Examination of the left hip reveals the dressing to be clean, dry and intact. Leg lengths were equal. Hip is located. She is neurologically intact. LABORATORY DATA: Hemoglobin 13.4. Hematocrit 39.4. INR is 1.2. Electrolytes are stable. ASSESSMENT: A 75-year-old white female postoperative day 1 from a left hybrid total hip arthroplasty, doing well. Pain is very well controlled. Hip is located. She is neurologically intact. PLAN: 1. DVT prophylaxis including thigh-high TEDs, SCDs, and she is back on Coumadin. 2. PT/OT. She will weightbear as tolerated. Left total hip protocol. 3. Pain control, doing well with current pain regimen. 4. Disposition: She is going to need either rehab or prison facility stay. Social service is working on this. Medically, she looks fairly stable and ready for discharge at any time. Arrangements can be made.
[2020-12-22] MEDS: ALUMINUM/MAGNESIUM SUSP 30 ML UDC PO PRN ×2 (12:09→19:25)
[2020-12-22] MEDS ORDERED: WARFARIN SOD 7.5 MG TAB PO SCH (16:00)
[2020-12-22] MEDS: SENNA 8.6 MG TAB PO SCH (20:43)
[2020-12-22] MEDS: PRAVASTATIN SOD 40 MG TAB PO SCH (20:44)
[2020-12-23] MEDS: ALUMINUM/MAGNESIUM SUSP 30 ML UDC PO PRN (04:04)
[2020-12-23] MEDS: KETOROLAC TROMETHAMINE 15 MG/ML VIAL IV SCH (05:36)
[2020-12-23] MEDS: ACETAMINOPHEN 500 MG TAB PO SCH (05:36)
[2020-12-23 06:16] LABS: Prothrombin Time 19.3 Seconds (9.0-12.0)
[2020-12-23] MEDS: DOCUSATE SODIUM 100 MG CAP PO SCH (08:35)
[2020-12-23] MEDS: ASCORBIC ACID 500 MG TAB PO SCH (08:35)
[2020-12-23] MEDS: FERROUS GLUCONATE 324 MG TAB PO SCH (08:35)
[2020-12-23] MEDS: MULTIVITAMIN TAB PO SCH (08:35)
[2020-12-23] MEDS: CHOLECALCIFEROL 1,000 UNITS 25 MCG TAB PO SCH (08:36)
[2020-12-23] MEDS ORDERED: PANTOprazole 40 MG TAB PO SCH (09:00)
--- NOTE | 2020-12-23 09:12 | Progress Notes ---
DATE: 12/23/2020 SUBJECTIVE: A 75-year-old white female postop day 2 from a hybrid total hip arthroplasty. She is doing pretty well. No real hip pain. No new complaints. She continues to have a little bit of heartburn and reflux. Does respond to the Maalox. No other complaints. No chest pain or shortness of breath. OBJECTIVE: VITAL SIGNS: Temperature 36.5. Vital signs stable. GENERAL: Shows a pleasant elderly female. She is lying in bed, looks pretty comfortable. EXTREMITIES: Examination of the left leg reveals the leg lengths to be equal. Her Prevena VAC dressing is clean, dry and intact. It is working appropriately. Thigh is soft and supple. She is neurologically intact. LABORATORY DATA: INR is 2.0. ASSESSMENT: A 75-year-old white female postop day 2 from a hybrid total hip arthroplasty, doing well. Pain is controlled. Having a little bit of gastroesophageal reflux disease, which she has but really does not take much for. Responds to the Maalox, but will try some additional medicines. Her pain is controlled. Hip is located. INR is therapeutic. PLAN: 1. DVT prophylaxis including thigh-high TEDs, SCDs, and Coumadin. 2. PT/OT. Weight bear as tolerated. Left total hip protocol. 3. Pain control, doing well with current pain regimen. 4. Really not having much pain. 5. Gastroesophageal reflux disease. We will try likely some Protonix along with the Maalox. 6. Disposition: She is orthopedically okay for discharge to [facility] facility once approved and accepted.
[2020-12-23] MEDS ORDERED: WARFARIN SOD 5 MG TAB PO SCH (16:00)
--- NOTE | 2020-12-25 06:38 | Discharge Summary ---
Date of Service December 25, 2020 Discharge Data Procedures Performed Operation Date: 12/21/20 07:00 Actual Procedures p Left Total Hip Arthroplasty, Cemented(Left) - Regis Chavez MD Hospital Course (1) Status post total hip replacement, left: This patient is a 75 year old female admitted on 12/21/20 and underwent left total hip arthroplasty. She tolerated the procedure well and there were no complications. Transferred to the PACU post op and later to the orthopedic floor for further care. She was given ancef for antibiotic prophylaxis. She was also given MIKEL stockings, SCDs, and coumadin for DVT prophylaxis. Hemoglobin, hematocrit, and vital signs were monitored during her hospital stay and remained stable. Did not require any blood transfusions. There were no complications during her hospital stay. By post op day #2 the patient was tolerating a regular diet, pain was reasonably controlled with oral pain medicine, and she was participating in physical therap y. On post op day #2 the patient was discharged to a rehab facility. She was given printed discharge instructions including prescriptions for extra strength tylenol, protonix, and tramadol. Continue physical therapy, weight bearing as tolerated. Continue hip precautions. Continue MIKEL stockings. Follow up approximately 2 weeks post op or sooner if there are problems or concerns. Coding Level of Care Code None Diagnoses Status post total hip replacement, left Z96.642
== END 2020-12-23 11:09 ==
LOC: ASU 05:04 → 3E 05:04

== ENCOUNTER 2023-04-06 17:17 | Inpatient (IN) ==
[2023-04-06] MEDS ORDERED: ALBUT/IPRATROP 3MG/0.5MG NEB 3 ML VIAL NEB STA (18:08)
--- NOTE | 2023-04-06 18:11 | Emergency Department Note ---
Impression & Plan Acute dyspnea, Multiple pulmonary emboli, Elevated troponin, COPD (chronic obstructive pulmonary disease) ED Provider Note ED Provider Note NAME: STEVE MORENO AGE:77 SEX: Female : 1945 ARRIVES VIA: Private vehicle INFORMANT: Patient, friend at bedside ED PROVIDER(s): Dinorah Conte DO CHIEF COMPLAINT: Increased shortness of breath HPI: This is a 77-year-old female presents emergency department due to concern for increased shortness of breath over the last several days. Friend at bedside who provides history as patient does have memory difficulties. Patient states she smoked for 42 years and does have COPD but does not use breathing treatments at home and does not wear home oxygen. Patient states she has been so out of breath just getting to the kitchen and/or the bathroom she has not eaten anythin g in 2 days. She denies fevers, chills, URI symptoms, accompanying chest pain, or leg swelling. She denies any history of heart problems. Patient states she does take a blood thinner but does not know what her last level is. Patient states she went and saw her PCP today, Dr. Lassiter who sent her for labs and an x-ray as an outpatient and then called her and told her to come to the emergency room. Patient does seem to have some cognitive difficulty with remembering medications and medical history. PAST MEDICAL HISTORY:See Below PAST SURGICAL HISTORY:See Below FAMILY HISTORY:See Below SOCIAL HISTORY:See Below HOME MEDICATIONS:See Below ALLERGIES:See Below VITALS:See Below PHYSICAL EXAMINATION: GENERAL: alert, well appearing, well nourished, no distress, non-toxic EYE EXAM: normal conjunctiva, PERRL and EOM's grossly intact OROPHARYNX: no exudate, no erythema, lips, buccal mucosa, and tongue normal and mucous membranes are moist NECK: supple, no nuchal rigidity, no adenopathy, non-tender LUNGS: Clear to auscultation. Normal chest wall mechanics, no w/r/r HEART: no murmurs, S1 normal and S2 normal ABDOMEN: abdomen soft, non-tender, normo-active bowel sounds, no masses, no rebound or guarding. BACK: Back is symmetrical on inspection and there is no deformity, no midline tenderness, no CVA tenderness. SKIN: no rashes, petechiae, orbruising UPPER EXTREMITIES: upper extremities are grossly normal. FROM, nml pulses b/l. LOWER EXTREMITIES: No pitting edema. FROM, nml pulses b/l. NEURO EXAM: Normal sensorium, cranial nerves II-XII grossly intact, normal speech, no facial droop,nogross weakness of arms, no gross weakness of legs. Gross sensation intact. No ataxia. Vital Signs: reviewed and remarkable Differential Diagnosis: pneumonia, bronchitis, COPD/Asthma exacerbation, pneumothorax, pulmonary embolism, congestive heart failure, acute coronary syndrome, pleural effusion, pericardial effusion, as well as others were concern MEDICAL DECISION MAKING: This is a 77-year-old female presents emergency department after being referred here by her PCP due to concern for increased difficulty breathing. Patient underwent outpatient labs and x-ray which were reviewed. Upon arrival here she was afebrile and vital signs stable although she was requiring oxygen as she was noted to be hypoxic at 86%. While patient does have history of extensive COPD she does not use home oxygen. Labs are drawn and sent, IV established, EKG performed at bedside and interpreted by me and outpatient x-ray reviewed. Upon additional discussion of her history, we discussed need for additional imaging. Patient sent for CT angiography of the chest as she supposed to be taking Cou madin daily and was found to be subtherapeutic with an INR of 1. Patient does have a prior history of a DVT. Patient noted to have significant bilateral pulmonary embolisms with evidence of RV strain. She did have a mildly elevated troponin. She was hemodynamically stable in the emergency room and maintained her sats on oxygen via nasal cannula. Patient started on heparin bolus and drip and hospitalist team contacted for additional evaluation and management. Patient and friend at bedside updated on results and plan and verbalized understanding. Consultation(s): 2114: Discussed with Dr. Chavez. ER Treatment Provided: See below 2034: Patient and friend at bedside updated on results and need for further inpatient management. Diagnostics Interpreted By Me: -ECG: Normal sinus at 100, normal axis, normal intervals, no acute ST/T wave changes -Cardiac Monitoring: An order was placed for continuous cardiac monitoring. The monitor shows a rate of 90 with normal sinus rhythm. -Laboratory studies: As stated above and show below. -Imaging studies: X-ray Chest: A single view study of the chest was reviewed and was negative for cardiomegaly, focal infiltrate, effusion, pulmonary edema, or wide mediastinum. Triage Nursing Note Reviewed Prior/Outside Records Reviewed -PCP visit note and outpatient labs reviewed Critical Care: Critical care of 39 min performed to assess and manage high likelihood of life- threatening bilateral PEs with right heart strain, involving labs and imaging performed with assessment to evaluate dyspnea diagnosis with frequent reassessment. This time includes bedside time, treatment discussions with patient/family/consultants, documentation time and excludes procedure time. Past Med/Surg History Medical History (Updated 04/06/23 @ 22:50 by Isabelle Chavez DO) Cataract lt. Chronic obstructive pulmonary disease stable Dvt femoral (deep venous thrombosis) Recurrent RLE (unprovoked)- remote hx Encounter for pre-operative examination GERD (gastroesophageal reflux disease) controlled Hearing loss Hyperlipidemia Hypertension hx Migraine hx Mixed Alzheimer's and vascular dementia Osteoporosis Pulmonary nodule Per records Tinnitus "contantly" Surgical History History of colonoscopy History of esophagogastroduodenoscopy (EGD) History of left hip replacement Hx of cataract extraction rt. Hx of tonsillectomy Hx of tooth extraction wears upper and lower dentures Status post total hip replacement, left Family History Mother Ovarian cancer Alzheimer disease Glaucoma Family/Other Diabetes COUSINS Coronary heart disease Hypercholesterolemia Breast cancer Hypertension Thyroid disorder Father Lung cancer Hearing loss Cancer Brother Celiac disease Son Substance abuse Other Family history non-contributory No family history of adverse response to anesthesia No family history of bleeding disorder Denies family history of Prostate cancer Myocardial infarction Colorectal cancer Social History Smoking Status: Former smoker Tobacco Type: Cigarettes Age Started Using Tobacco: 13; Age Quit Using Tobacco: 51; packs per day: 1; Second Hand Exposure: No; Do You Dip or Chew Tobacco: No; Tobacco Cessation Education Requested by Patient: No Hx Alcohol Use: No Hx Substance Use: No Preferred Language: Bulgarian Communication Ability: Effective Visual Impairment: No Limitations Hearing Ability: Hard of Hearing Nurse Leader Required: No Beliefs That Will Affect Care: None marital status: Current Living Situation: Alone current occupational status: retired 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 Other Information That Helps Us Care for You: No Feels Safe at Home: Yes Safety Concerns: Feels Safe At This Time Childhood Exposure to Second-Hand Smoke: Yes Diet: regular Dental Care, Regularly: No Physical Activity Frequency: Does not Exercise Seatbelt Use: never Sunscreen Use: No Assistive Devices: None Allergies Allergies Allergy/AdvReac Type Severity Reaction Status Date / Time No Known Allergies Allergy Verified 04/06/23 11:33 Home Meds Home Medications Medication Instructions Recorded Confirmed cholecalciferol (vitamin D3) 50 2,000 unit PO DAILY 11/17/20 04/06/23 mcg (2,000 unit) tablet naproxen sodium 220 mg capsule 220 mg PO BID PRN Pain 11/17/20 04/06/23 (Aleve) donepezil 5 mg tablet 5 mg PO QAM 04/06/23 04/06/23 Previous Rx's Medication Instructions Recorded pravastatin 40 mg tablet 40 mg PO HS #90 tabs 09/28/22 warfarin 2.5 mg tablet 2.5 mg PO DAILY #90 tabs 04/06/23 Results & Data (ED) Vital Signs Vital Signs - 24 hr 04/06/23 17:26 04/06/23 17:41 04/06/23 17:41 Temperature 36.6 C Temperature Source Temporal Artery Scan Pulse Rate 108 H 103 H Pulse Rate [Apical] Pulse Rhythm Regular Respiratory Rate 16 22 Respiratory Depth Blood Pressure 143/93 H Blood Pressure [Left Arm] Blood Pressure Mean 109 Blood Pressure Mean [Left Arm] Blood Pressure Position [Left Arm] Pulse Oximetry 86 L 94 94 Oxygen Delivery Method Room Air Nasal Cannula Nasal Cannula Oxygen Flow Rate 2 2 Sepsis Recent Fever Within 48 Hours No Sepsis New/Unexplained Change in Mental Status N/A Sepsis Action Taken by Nursing No Action Required 04/06/23 17:52 04/06/23 18:40 04/06/23 21:00 Temperature Temperature Source Pulse Rate 97 H Pulse Rate [Apical] 89 91 H Pulse Rhythm Respiratory Rate 20 16 Respiratory Depth Normal Blood Pressure Blood Pressure [Left Arm] 118/90 118/80 Blood Pressure Mean Blood Pressure Mean [Left Arm] 99 92 Blood Pressure Position [Left Arm] Sitting Pulse Oximetry 100 95 Oxygen Delivery Method Aerosol Mask Room Air Oxygen Flow Rate 5 Sepsis Recent Fever Within 48 Hours Sepsis New/Unexplained Change in Mental Status Sepsis Action Taken by Nursing Laboratory Data 04/06/23 17:45 04/06/23 17:45 Lab Results 04/06/23 04/06/23 04/06/23 Range/Units 17:45 17:45 17:45 WBC 12.23 H (4.8-10.8) K/ul RBC 4.86 (4.20-5.40) M/uL Hgb 15.0 (12.0-16.0) g/dl Hct 44.7 (37.0-47.0) % MCV 92.0 (80.0-100.0) fL MCH 30.9 (25.0-34.0) pg MCHC 33.6 (32.0-36.0) g/dL RDW Std Deviation 46.4 H (36.4-46.3) fL RDW Coeff of Deloris 13.8 (11.5-14.5) % Plt Count 219 (130-400) K/uL MPV 9.9 (9.4-12.4) fL Immature Gran % (Auto) 0.7 % Neut % (Auto) 75.3 % Lymph % (Auto) 15.6 % [place] % (Auto) 7.0 % Eos % (Auto) 0.7 % Baso % (Auto) 0.7 % Neut # (Auto) 9.21 H (1.40-6.50) K/uL Lymph # (Auto) 1.91 (1.2-3.4) K/uL [place] # (Auto) 0.86 H (0.11-0.59) K/uL Eos # (Auto) 0.09 (0-0.50) K/uL Baso # (Auto) 0.08 (0-0.2) K/uL Immature Gran # (Auto) 0.08 (0.01-0.20) K/uL PT 11.2 (9.0-12.0) Seconds INR 1.0 (0.9-1.1) APTT 23.6 (21.0-31.0) Seconds PTT Ratio 0.8 Sodium 139 (136-145) mmol/L Potassium 3.8 (3.5-5.1) mmol/L Chloride 104 (98-107) mmol/L Carbon Dioxide 24 (21-32) mmol/L Anion Gap 11 (3-11) BUN 18 (6-23) mg/dl Creatinine 1.02 (0.6-1.2) mg/dl Est Cr Clr Drug Dosing 47.2 ml/min Est GFR ( Amer) 61.4 ml/min Est GFR (Non-Af Amer) 53.0 ml/min BUN/Creatinine Ratio 17.6 (10-20) Glucose 171 H (70-99(Fasting)) mg/dl Calcium 9.8 (8.6-10.3) mg/dl Total Bilirubin 0.8 (0.2-1.0) mg/dl AST 22 (13-39) U/L ALT 16 (7-52) U/L Alkaline Phosphatase 99 (34-104) U/L Troponin I High Sens 33.6 H (0-14) pg/ml Total Protein 7.3 (6.0-8.3) gm/dl Albumin 4.3 (3.4-5.0) gm/dl Globulin 3.0 (2.5-4.0) gm/dl Albumin/Globulin Ratio 1.4 (0.9-2) Adenovirus (PCR) (NotDetected) B. pertussis DNA (PCR) (NotDetected) B.parapertussis DNA PCR (NotDetected) C. pneumoniae DNA (PCR) (NotDetected) Coronavirus OC43 (PCR) (NotDetected) Coronavirus HKU1 (PCR) (NotDetected) Coronavirus 229E (PCR) (NotDetected) SARS-CoV-2 (PCR) (NotDetected) Coronavirus NL63 (PCR) (NotDetected) Human Metapneumovir PCR (NotDetected) Influenza Type A (PCR) (NotDetected) Influenza Type B (PCR) (NotDetected) M. pneumoniae (PCR) (NotDetected) Parainfluenza 1 (PCR) (NotDetected) Parainfluenza 2 (PCR) (NotDetected) Parainfluenza 3 (PCR) (NotDetected) Parainfluenza 4 (PCR) (NotDetected) RSV (PCR) (NotDetected) Entero/Rhino (PCR) (NotDetected) 04/06/23 Range/Units 19:13 WBC (4.8-10.8) K/ul RBC (4.20-5.40) M/uL Hgb (12.0-16.0) g/dl Hct (37.0-47.0) % MCV (80.0-100.0) fL MCH (25.0-34.0) pg MCHC (32.0-36.0) g/dL RDW Std Deviation (36.4-46.3) fL RDW Coeff of Deloris (11.5-14.5) % Plt Count (130-400) K/uL MPV (9.4-12.4) fL Immature Gran % (Auto) % Neut % (Auto) % Lymph % (Auto) % [place] % (Auto) % Eos % (Auto) % Baso % (Auto) % Neut # (Auto) (1.40-6.50) K/uL Lymph # (Auto) (1.2-3.4) K/uL [place] # (Auto) (0.11-0.59) K/uL Eos # (Auto) (0-0.50) K/uL Baso # (Auto) (0-0.2) K/uL Immature Gran # (Auto) (0.01-0.20) K/uL PT (9.0-12.0) Seconds INR (0.9-1.1) APTT (21.0-31.0) Seconds PTT Ratio Sodium (136-145) mmol/L Potassium (3.5-5.1) mmol/L Chloride (98-107) mmol/L Carbon Dioxide (21-32) mmol/L Anion Gap (3-11) BUN (6-23) mg/dl Creatinine (0.6-1.2) mg/dl Est Cr Clr Drug Dosing ml/min Est GFR ( Amer) ml/min Est GFR (Non-Af Amer) ml/min BUN/Creatinine Ratio (10-20) Glucose (70-99(Fasting)) mg/dl Calcium (8.6-10.3) mg/dl Total Bilirubin (0.2-1.0) mg/dl AST (13-39) U/L ALT (7-52) U/L Alkaline Phosphatase (34-104) U/L Troponin I High Sens (0-14) pg/ml Total Protein (6.0-8.3) gm/dl Albumin (3.4-5.0) gm/dl Globulin (2.5-4.0) gm/dl Albumin/Globulin Ratio (0.9-2) Adenovirus (PCR) Not Detected (NotDetected) B. pertussis DNA (PCR) Not Detected (NotDetected) B.parapertussis DNA PCR Not Detected (NotDetected) C. pneumoniae DNA (PCR) Not Detected (NotDetected) Coronavirus OC43 (PCR) Not Detected (NotDetected) Coronavirus HKU1 (PCR) Not Detected (NotDetected) Coronavirus 229E (PCR) Not Detected (NotDetected) SARS-CoV-2 (PCR) Not Detected (NotDetected) Coronavirus NL63 (PCR) Not Detected (NotDetected) Human Metapneumovir PCR Not Detected (NotDetected) Influenza Type A (PCR) Not Detected (NotDetected) Influenza Type B (PCR) Not Detected (NotDetected) M. pneumoniae (PCR) Not Detected (NotDetected) Parainfluenza 1 (PCR) Not Detected (NotDetected) Parainfluenza 2 (PCR) Not Detected (NotDetected) Parainfluenza 3 (PCR) Not Detected (NotDetected) Parainfluenza 4 (PCR) Not Detected (NotDetected) RSV (PCR) Not Detected (NotDetected) Entero/Rhino (PCR) Not Detected (NotDetected) Administered Medications Heparin Sodium/Dextrose (Heparin Sodium/Dextrose) 25,000 units in 500 mls @ 23 mls/hr IV .[id number] [facility]; Protocol Stop: 05/06/23 20:59 Last Admin: 04/06/23 20:52 Dose: 1,150 units/hr, 23 mls/hr Documented By: JANEL Co-signed By: BS Discontinued Medications Albuterol (Albut/Ipratrop 3mg/0.5mg Neb 3 Ml Vial) 3 ml NEB NOW STA; Protocol Stop: 04/06/23 18:09 Last Admin: 04/06/23 18:40 Dose: 3 ml Documented By: TRACIE Heparin Sodium (Porcine) (Heparin Sod (Porcine) 1000 Unit/Ml) 5,000 units IV NOW ONE Stop: 04/06/23 21:01 Last Admin: 04/06/23 20:53 Dose: 5,000 units Documented By: JANEL Co-signed By: LUKASZ Ioversol (Optiray 320 125ml) 115 ml IV ONCE ONE Stop: 04/06/23 20:11 Last Admin: 04/06/23 20:11 Dose: 115 ml Documented By: MARE Imaging Data Radiologist's Impression: Chest CTA 04/06/23 18:08 CR Exam(s): CTA CHEST IV Amt: 115ml EXAM: CT Angiography Chest With Intravenous Contrast CLINICAL HISTORY: Reason for exam: PE. TECHNIQUE: Axial computed tomographic angiography images of the chest with intravenous contrast. Automated exposure control was utilized for the study. A dose lowering technique was utilized adhering to the principles of ALARA. MIP reconstructed images were created and reviewed. COMPARISON: CT chest 06/10/2022. FINDINGS: Pulmonary arteries: Bilateral main pulmonary artery emboli. Aorta: Atherosclerotic calcification the aorta. No thoracic aortic aneurysm. Lungs: Opacity in the lingula. Emphysematous change of the lungs. Bilateral dependent atelectasis. Pleural space: Unremarkable. No significant effusion. No pneumothorax. Heart: RV LV ratio is approximately 2. Ventricular septum bowing and reflux of contrast into the inferior vena cava and hepatic veins. Atherosclerotic calcification coronary arteries. No significant pericardial effusion. Mediastinum: Mild hiatal hernia. Bones/joints: Diffusely decreased osseous mineralization. Degenerative change of the spine with exaggerated kyphosis. No acute fracture. No dislocation. Soft tissues: Unremarkable. Lymph nodes: Unremarkable. No enlarged lymph nodes. Adrenals: Nodular thickening of the left adrenal gland is unchanged. IMPRESSION: 1. Bilateral main pulmonary artery emboli. There is evidence of right heart strain as described. 2. Opacity in the lingula. This may represent pulmonary infarction in the setting of pulmonary emboli. Pneumonia is not excluded. 3. Emphysematous change of the lungs. 4. Atherosclerotic calcification coronary arteries. Communications: Call Doctor Pulmonary Embolism Electronically signed by: Giovanny Todd MD 04/06/23 20:31 PM Discharge Plan Visit Data Chief Complaint: Referred by Doctor Stated Complaint: REFERRED BY DOC; CHEST XRAY ABNORMAL ED Provider: Dinorah Conte Discharge Problem: Acute dyspnea, Multiple pulmonary emboli, Elevated troponin, COPD (chronic obstructive pulmonary disease) Patient Disposition: Admitted As Inpatient Discharge Instructions Interventions: ED Discharge Assessment Last Done: 04/06/23 21:36
[2023-04-06 18:29] LABS: Basophils # (auto) 0.08 K/uL (0-0.2); Basophils % (auto) 0.7 %; Eosinophils # (auto) 0.09 K/uL (0-0.50); Eosinophils % (auto) 0.7 %; Hematocrit (blood only) 44.7 % (37.0-47.0); Immature Granulocytes # (auto) 0.08 K/uL (0.01-0.20); Immature Granulocytes % (auto) 0.7 %; Lymphocytes # (auto) 1.91 K/uL (1.2-3.4); Lymphocytes % (auto) 15.6 %; Mean Corpuscular Hemoglobin 30.9 pg (25.0-34.0); Mean Corpuscular Hgb Conc 33.6 g/dL (32.0-36.0); Mean Platelet Volume 9.9 fL (9.4-12.4); Monocytes # (auto) 0.86 K/uL (0.11-0.59); Neutrophils # (auto) 9.21 K/uL (1.40-6.50); Neutrophils % (auto) 75.3 %; Platelet Count 219 K/uL (130-400); RDW Coefficient of Variation 13.8 % (11.5-14.5); RDW Standard Deviation 46.4 fL (36.4-46.3); Red Blood Count 4.86 M/uL (4.20-5.40); White Blood Count 12.23 K/ul (4.8-10.8)
[2023-04-06 18:42] LABS: Albumin Globulin Ratio 1.4 (0.9-2); Albumin Level 4.3 gm/dl (3.4-5.0); BUN Creatinine Ratio 17.6 (10-20); Bilirubin,Total 0.8 mg/dl (0.2-1.0); Calcium 9.8 mg/dl (8.6-10.3); Creatinine Clr Calc Pharmacy 47.2 ml/min; Est GFR (African American) 61.4 ml/min; Potassium 3.8 mmol/L (3.5-5.1); Total Protein 7.3 gm/dl (6.0-8.3)
[2023-04-06 18:46] LABS: Troponin I High Sensitivity 33.6 pg/ml (0-14)
[2023-04-06 18:52] LABS: Partial Thromboplastin Ratio 0.8; Partial Thromboplastin Time 23.6 Seconds (21.0-31.0); Prothrombin Time 11.2 Seconds (9.0-12.0)
[2023-04-06] MEDS ORDERED: OPTIRAY 320 125ml IV ONE (20:10)
[2023-04-06 20:30] LABS: Adenovirus PCR Not Detected (NotDetected); Bordetella parapertussis PCR Not Detected (NotDetected); Bordetella pertussis PCR Not Detected (NotDetected); Chlamydia pneumoniae PCR Not Detected (NotDetected); Coronavirus 229E PCR Not Detected (NotDetected); Coronavirus CoV-2 (COVID19)PCR Not Detected (NotDetected); Coronavirus HKU1 PCR Not Detected (NotDetected); Coronavirus NL63 PCR Not Detected (NotDetected); Coronavirus OC43PCR Not Detected (NotDetected); Human Metapneumovirus PCR Not Detected (NotDetected); Influenza A PCR Not Detected (NotDetected); Influenza B PCR Not Detected (NotDetected); Mycoplasma pneumoniae PCR Not Detected (NotDetected); Parainfluenza Virus 1 PCR Not Detected (NotDetected); Parainfluenza Virus 2 PCR Not Detected (NotDetected); Parainfluenza Virus 3 PCR Not Detected (NotDetected); Parainfluenza Virus 4 PCR Not Detected (NotDetected); Respiratory Syncytial VirusPCR Not Detected (NotDetected); Rhinovirus/Enterovirus PCR Not Detected (NotDetected)
--- NOTE | 2023-04-06 20:32 | CT Scan Report ---
Exam(s): CTA CHEST IV Amt: 115ml EXAM: CT Angiography Chest With Intravenous Contrast CLINICAL HISTORY: Reason for exam: PE. TECHNIQUE: Axial computed tomographic angiography images of the chest with intravenous contrast. Automated exposure control was utilized for the study. A dose lowering technique was utilized adhering to the principles of ALARA. MIP reconstructed images were created and reviewed. COMPARISON: CT chest 06/10/2022. FINDINGS: Pulmonary arteries: Bilateral main pulmonary artery emboli. Aorta: Atherosclerotic calcification the aorta. No thoracic aortic aneurysm. Lungs: Opacity in the lingula. Emphysematous change of the lungs. Bilateral dependent atelectasis. Pleural space: Unremarkable. No significant effusion. No pneumothorax. Heart: RV LV ratio is approximately 2. Ventricular septum bowing and reflux of contrast into the inferior vena cava and hepatic veins. Atherosclerotic calcification coronary arteries. No significant pericardial effusion. Mediastinum: Mild hiatal hernia. Bones/joints: Diffusely decreased osseous mineralization. Degenerative change of the spine with exaggerated kyphosis. No acute fracture. No dislocation. Soft tissues: Unremarkable. Lymph nodes: Unremarkable. No enlarged lymph nodes. Adrenals: Nodular thickening of the left adrenal gland is unchanged. IMPRESSION: 1. Bilateral main pulmonary artery emboli. There is evidence of right heart strain as described. 2. Opacity in the lingula. This may represent pulmonary infarction in the setting of pulmonary emboli. Pneumonia is not excluded. 3. Emphysematous change of the lungs. 4. Atherosclerotic calcification coronary arteries. Communications: Call Doctor Pulmonary Embolism Electronically signed by: Giovanny Todd MD 04/06/23 20:31 PM
[2023-04-06] MEDS ORDERED: Heparin IV Adult Wt-Based Standard WITH Bolus Protocol IV STA (20:33)
[2023-04-06] MEDS ORDERED: HEPARIN SOD (PORCINE) 1000 UNIT/ML IV ONE ×2 (20:48→21:00)
[2023-04-06] MEDS: HEPARIN SODIUM/DEXTROSE 25,000 UNITS/500 ML BAG IV SCH (20:52)
--- NOTE | 2023-04-06 21:15 | History & Physical Report ---
Date of Service April 06, 2023 Assessment & Plan (1) Multiple pulmonary emboli: Plan: 77yo female with recurrent VTE on Coumadin therapy, likely non-adherence with INR of 1 presenting with several days of progressive dyspnea. Found to have bilateral main pulmonary artery emboli with evidence of right heart strain noted on CT. Also with opacity in the lingula which may represent pulmonary infarction. Patient tachycardic and hypoxic on arrival. Now on 2L supplemental O2 saturating 92%. PESI score of 107 - class IV - High risk - elderly patient with chronic lung disease and hypoxia on arrival. Normal shock index. She has been started on a heparin drip. Denies pain or pleurisy. -Admit to PCU -Continue Heparin drip -Should patient decompensate will administer lytic therapy -Check bilateral LE dopplers -Check 2D echo in AM -Repeat troponin in AM -Tylenol as needed for pain Patient with history of recurrent unprovoked LE DVTs. She had been on Xarelto in the past but was switched back to Coumadin due to cost. (2) COPD (chronic obstructive pulmonary disease): Plan: Patient with remote history of smoking for over 42 years. Quit in 2005. No home oxygen use of inhalers at home. -Continue supplemental O2 with goal saturation of 88-92% -DuoNebs as needed for wheeze (3) Hyperlipidemia: Plan: Chronic. Stable -Continue Pravastatin (4) Mixed Alzheimer's and vascular dementia: Plan: Patient is able to answer questions appropriately but can not provide clear details. -Continue Aricept -Frequent orientation F/E/N - Heplock. Electroltyes WNL.Regular diet as tolerated Ppx - Heparin drip Code - Full per discussion with patient Dispo - Admit to PCU History of Present Illness Chief Complaint: shortness of breath Primary Care Provider: DO Rodrigo Brodypanda Delatorre is a 77yo female presenting with two days of progressive shortness of breath and LITTLE. She has a history of COPD (no home therapies or oxygen), GERD, HTN, HLP, Memory deficit and recurrent DVTs (femoral DVT). Patient is on Coumadin therapy and has had some difficulty taking it as prescribed due to poor memory and cognitive decline. She was previously taking too much Coumadin and had a supratherapeutic INR with hematuria. More recently she reports that she ran out of her Coumadin approximately 1 month ago and hasn't taken it. Patient reports that two days ago she was sitting and watching television when she became acutely short of breath. She got up and tried to walk to the bathroom and felt very dyspneic. Her shortness of breath continued and became more severe to the point that she was not eating because she was too short of breath to walk to the kitchen. She denies chest pain, pleuritic discomfort, cough, hemoptysis, dizziness or syncope. She denies LE edema. No additional complaints - she specifically denies fever, chills, abdominal pain, nausea, vomiting, diarrhea or constipation. No recent illness, URI or wheeze. No recent surgery or prolonged immobility. In the ER patient is afebrile, tachycardic on arrival with heart rate of 108 bpm. Hypoxic with saturation of 86% on room air. She has since been placed on supplemental O2 by SD with improvement. Currently 92% on 2L. Blood pressure has been stable. ER Course: Heparin drip Albuterol Neb Allergies Allergy/AdvReac Type Severity Reaction Status Date / Time No Known Allergies Allergy Verified 04/06/23 11:33 Home Medications Medication Instructions Recorded Confirmed Type cholecalciferol (vitamin D3) 50 2,000 unit PO DAILY 11/17/20 04/06/23 History mcg (2,000 unit) tablet naproxen sodium 220 mg capsule 220 mg PO BID PRN Pain 11/17/20 04/06/23 History (Aleve) pravastatin 40 mg tablet 40 mg PO HS #90 tabs 09/28/22 04/06/23 Rx donepezil 5 mg tablet 5 mg PO QAM 04/06/23 04/06/23 History warfarin 2.5 mg tablet 2.5 mg PO DAILY #90 tabs 04/06/23 04/06/23 Rx Past Med/Surg History Medical History (Updated 04/06/23 @ 22:50 by Isabelle Chavez DO) Cataract lt. Chronic obstructive pulmonary disease stable Dvt femoral (deep venous thrombosis) Recurrent RLE (unprovoked)- remote hx Encounter for pre-operative examination GERD (gastroesophageal reflux disease) controlled Hearing loss Hyperlipidemia Hypertension hx Migraine hx Mixed Alzheimer's and vascular dementia Osteoporosis Pulmonary nodule Per records Tinnitus "contantly" Surgical History History of colonoscopy History of esophagogastroduodenoscopy (EGD) History of left hip replacement Hx of cataract extraction rt. Hx of tonsillectomy Hx of tooth extraction wears upper and lower dentures Status post total hip replacement, left Family History Mother Ovarian cancer Alzheimer disease Glaucoma Family/Other Diabetes COUSINS Coronary heart disease Hypercholesterolemia Breast cancer Hypertension Thyroid disorder Father Lung cancer Hearing loss Cancer Brother Celiac disease Son Substance abuse Other Family history non-contributory No family history of adverse response to anesthesia No family history of bleeding disorder Denies family history of Prostate cancer Myocardial infarction Colorectal cancer Social History Smoking Status: Former smoker Tobacco Type: Cigarettes Age Started Using Tobacco: 13; Age Quit Using Tobacco: 51; packs per day: 1; Second Hand Exposure: No; Do You Dip or Chew Tobacco: No; Hx Alcohol Use: No (when she was young) Hx Substance Use: No Preferred Language: Chinese Communication Ability: Effective Visual Impairment: No Limitations Hearing Ability: Hard of Hearing Electronic Commerce Specialist Required: No Beliefs That Will Affect Care: None marital status: Current Living Situation: Alone current occupational status: retired 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 Feels Safe at Home: Yes Childhood Exposure to Second-Hand Smoke: Yes Diet: regular Dental Care, Regularly: No Physical Activity Frequency: Does not Exercise Seatbelt Use: never Sunscreen Use: No Assistive Devices: Denture - Upper, Denture - Lower and Glasses Review of Systems Review of Systems: All systems reviewed & are unremarkable except as noted in HPI & below Physical Exam Physical Exam: General: patient resting comfortably, NAD, non-toxic in appearance, answering questions appropriately and following commands Skin: warm, dry, intact, no rashes or lesions HEENT: NC/AT, PERRL, EOMI, anicteric sclera, conjunctiva without injection, external ear normal to inspection and nontender, nares patent, moist mucus membranes, dentition intact, no oropharyngeal lesions, neck supple, trachea m idline, no LAD, no thyromegaly, no JVD Heart: +S1/S2, regular, no m/r/g Lungs: equal air entry bilaterally, no rhonchi or wheezes, mild end-inspiratory crackles in bilateral bases Abd: +BS, soft, NT/ND, no masses/organomegaly/ascites Ext: warm, 2+ pulses in UE/LE bilaterally, no clubbing/cyanosis, mild swelling of RLE with some varicosities. Neuro: nonfocal, speech intact, no facial droop, moving all extremities on command with equal strength 5/5 Results & Data Results & Data Vital Signs (Past 12 Hours) Vital Signs Temp Pulse Pulse Resp BP BP Pulse Ox 04/06/23 18:40 89 20 118/90 100 04/06/23 17:52 97 H 04/06/23 17:41 103 H 22 94 04/06/23 17:41 94 04/06/23 17:26 36.6 C 108 H 16 143/93 H 86 L O2 Del Method O2 Flow Rate 04/06/23 18:40 Aerosol Mask 5 04/06/23 17:52 04/06/23 17:41 Nasal Cannula 2 04/06/23 17:41 Nasal Cannula 2 04/06/23 17:26 Room Air Laboratory Results Laboratory Results WBC 12.23 K/ul (4.8-10.8) H 04/06/23 17:45 RBC 4.86 M/uL (4.20-5.40) 04/06/23 17:45 Hgb 15.0 g/dl (12.0-16.0) 04/06/23 17:45 Hct 44.7 % (37.0-47.0) 04/06/23 17:45 MCV 92.0 fL (80.0-100.0) 04/06/23 17:45 MCH 30.9 pg (25.0-34.0) 04/06/23 17:45 MCHC 33.6 g/dL (32.0-36.0) 04/06/23 17:45 RDW Std Deviation 46.4 fL (36.4-46.3) H 04/06/23 17:45 RDW Coeff of Deloris 13.8 % (11.5-14.5) 04/06/23 17:45 Plt Count 219 K/uL (130-400) 04/06/23 17:45 MPV 9.9 fL (9.4-12.4) 04/06/23 17:45 Immature Gran % (Auto) 0.7 % 04/06/23 17:45 Neut % (Auto) 75.3 % 04/06/23 17:45 Lymph % (Auto) 15.6 % 04/06/23 17:45 Lassen % (Auto) 7.0 % 04/06/23 17:45 Eos % (Auto) 0.7 % 04/06/23 17:45 Baso % (Auto) 0.7 % 04/06/23 17:45 Neut # (Auto) 9.21 K/uL (1.40-6.50) H 04/06/23 17:45 Lymph # (Auto) 1.91 K/uL (1.2-3.4) 04/06/23 17:45 Lassen # (Auto) 0.86 K/uL (0.11-0.59) H 04/06/23 17:45 Eos # (Auto) 0.09 K/uL (0-0.50) 04/06/23 17:45 Baso # (Auto) 0.08 K/uL (0-0.2) 04/06/23 17:45 Immature Gran # (Auto) 0.08 K/uL (0.01-0.20) 04/06/23 17:45 PT 11.2 Seconds (9.0-12.0) 04/06/23 17:45 INR 1.0 (0.9-1.1) 04/06/23 17:45 APTT 23.6 Seconds (21.0-31.0) 04/06/23 17:45 PTT Ratio 0.8 04/06/23 17:45 Sodium 139 mmol/L (136-145) 04/06/23 17:45 Potassium 3.8 mmol/L (3.5-5.1) 04/06/23 17:45 Chloride 104 mmol/L (98-107) 04/06/23 17:45 Carbon Dioxide 24 mmol/L (21-32) 04/06/23 17:45 Anion Gap 11 (3-11) 04/06/23 17:45 BUN 18 mg/dl (6-23) 04/06/23 17:45 Creatinine 1.02 mg/dl (0.6-1.2) 04/06/23 17:45 Est Cr Clr Drug Dosing 47.2 ml/min 04/06/23 17:45 Est GFR ( Amer) 61.4 ml/min 04/06/23 17:45 Est GFR (Non-Af Amer) 53.0 ml/min 04/06/23 17:45 BUN/Creatinine Ratio 17.6 (10-20) 04/06/23 17:45 Glucose 171 mg/dl (70-99(Fasting)) H 04/06/23 17:45 Calcium 9.8 mg/dl (8.6-10.3) 04/06/23 17:45 Total Bilirubin 0.8 mg/dl (0.2-1.0) 04/06/23 17:45 AST 22 U/L (13-39) 04/06/23 17:45 ALT 16 U/L (7-52) 04/06/23 17:45 Alkaline Phosphatase 99 U/L (34-104) 04/06/23 17:45 Troponin I High Sens 33.6 pg/ml (0-14) H 04/06/23 17:45 Total Protein 7.3 gm/dl (6.0-8.3) 04/06/23 17:45 Albumin 4.3 gm/dl (3.4-5.0) 04/06/23 17:45 Globulin 3.0 gm/dl (2.5-4.0) 04/06/23 17:45 Albumin/Globulin Ratio 1.4 (0.9-2) 04/06/23 17:45 Adenovirus (PCR) Not Detected (NotDetected) 04/06/23 19:13 B. pertussis DNA (PCR) Not Detected (NotDetected) 04/06/23 19:13 B.parapertussis DNA PCR Not Detected (NotDetected) 04/06/23 19:13 C. pneumoniae DNA (PCR) Not Detected (NotDetected) 04/06/23 19:13 Coronavirus OC43 (PCR) Not Detected (NotDetected) 04/06/23 19:13 Coronavirus HKU1 (PCR) Not Detected (NotDetected) 04/06/23 19:13 Coronavirus 229E (PCR) Not Detected (NotDetected) 04/06/23 19:13 SARS-CoV-2 (PCR) Not Detected (NotDetected) 04/06/23 19:13 Coronavirus NL63 (PCR) Not Detected (NotDetected) 04/06/23 19:13 Human Metapneumovir PCR Not Detected (NotDetected) 04/06/23 19:13 Influenza Type A (PCR) Not Detected (NotDetected) 04/06/23 19:13 Influenza Type B (PCR) Not Detected (NotDetected) 04/06/23 19:13 M. pneumoniae (PCR) Not Detected (NotDetected) 04/06/23 19:13 Parainfluenza 1 (PCR) Not Detected (NotDetected) 04/06/23 19:13 Parainfluenza 2 (PCR) Not Detected (NotDetected) 04/06/23 19:13 Parainfluenza 3 (PCR) Not Detected (NotDetected) 04/06/23 19:13 Parainfluenza 4 (PCR) Not Detected (NotDetected) 04/06/23 19:13 RSV (PCR) Not Detected (NotDetected) 04/06/23 19:13 Entero/Rhino (PCR) Not Detected (NotDetected) 04/06/23 19:13 Impressions Chest CTA 04/06/23 18:08 CR Exam(s): CTA CHEST IV Amt: 115ml EXAM: CT Angiography Chest With Intravenous Contrast CLINICAL HISTORY: Reason for exam: PE. TECHNIQUE: Axial computed tomographic angiography images of the chest with intravenous contrast. Automated exposure control was utilized for the study. A dose lowering technique was utilized adhering to the principles of ALARA. MIP reconstructed images were created and reviewed. COMPARISON: CT chest 06/10/2022. FINDINGS: Pulmonary arteries: Bilateral main pulmonary artery emboli. Aorta: Atherosclerotic calcification the aorta. No thoracic aortic aneurysm. Lungs: Opacity in the lingula. Emphysematous change of the lungs. Bilateral dependent atelectasis. Pleural space: Unremarkable. No significant effusion. No pneumothorax. Heart: RV LV ratio is approximately 2. Ventricular septum bowing and reflux of contrast into the inferior vena cava and hepatic veins. Atherosclerotic calcification coronary arteries. No significant pericardial effusion. Mediastinum: Mild hiatal hernia. Bones/joints: Diffusely decreased osseous mineralization. Degenerative change of the spine with exaggerated kyphosis. No acute fracture. No dislocation. Soft tissues: Unremarkable. Lymph nodes: Unremarkable. No enlarged lymph nodes. Adrenals: Nodular thickening of the left adrenal gland is unchanged. IMPRESSION: 1. Bilateral main pulmonary artery emboli. There is evidence of right heart strain as described. 2. Opacity in the lingula. This may represent pulmonary infarction in the setting of pulmonary emboli. Pneumonia is not excluded. 3. Emphysematous change of the lungs. 4. Atherosclerotic calcification coronary arteries. Communications: Call Doctor Pulmonary Embolism Electronically signed by: Giovanny Todd MD 04/06/23 20:31 PM ECG Additional Comments: EKG with NSR at 100bpm, normal axis, AE=141, QRS=74, YFf=135, non-specific ST changes in anterior leads, no ST elevations PG Care Time/CCT Total # of Minutes Spent Total Time Spent with Patient: Total time spent is greater than 50% in coordination of care (as documented) at patient's floor/unit and/or counseling patient: Coding Level of Care Code 22433 INT INP/OBS CARE 3/75MIN Diagnoses Multiple pulmonary emboli I26.99 COPD (chronic obstructive pulmonary disease) J44.9 Hyperlipidemia E78.5 Mixed Alzheimer's and vascular dementia G30.9; F01.50; F02.80
[2023-04-06] MEDS ORDERED: ALBUT/IPRATROP 3MG/0.5MG NEB 3 ML VIAL NEB PRN (23:00)
[2023-04-06] MEDS ORDERED: ACETAMINOPHEN 325 MG TAB PO PRN (23:00)
[2023-04-06] MEDS ORDERED: ONDANSETRON INJ 2 MG/ML 2 ML VIAL IV PRN (23:00)
--- NOTE | 2023-04-07 00:53 | Ultrasound Report ---
Exam(s): US VENOUS BILATERAL LOWER EXTREMITIES EXAM: US Duplex Bilateral Lower Extremities Veins CLINICAL HISTORY: Reason for exam: Pulmonary emboli. TECHNIQUE: Real-time duplex ultrasound scan of the bilateral lower extremity veins integrating B-mode two-dimensional vascular structure, Doppler spectral analysis, color flow Doppler imaging and compression. COMPARISON: None. FINDINGS: Right deep veins: Nonocclusive thrombus in the right popliteal vein extending into the veins of the calf. Right superficial veins: Superficial vein thrombus in the right popliteal fossa. Left deep veins: Nonocclusive thrombus in the left peroneal vein. Left superficial veins: Unremarkable. No thrombus in the visualized left great saphenous vein. Soft tissues: No acute findings. No popliteal cyst. IMPRESSION: 1. Nonocclusive thrombus in the right popliteal vein extending into the veins of the calf. 2. Nonocclusive thrombus in the left peroneal vein. Communications: Verify Receipt Electronically signed by: Giovanny Todd MD 04/07/23 00:52 AM
[2023-04-07 03:26] LABS: Hematocrit (blood only) 40.3 % (37.0-47.0); Hemoglobin 13.5 g/dl (12.0-16.0); Mean Corpuscular Hemoglobin 30.7 pg (25.0-34.0); Mean Corpuscular Hgb Conc 33.5 g/dL (32.0-36.0); Mean Corpuscular Volume 91.6 fL (80.0-100.0); Mean Platelet Volume 9.7 fL (9.4-12.4); Platelet Count 181 K/uL (130-400); RDW Coefficient of Variation 13.8 % (11.5-14.5); RDW Standard Deviation 46.7 fL (36.4-46.3); White Blood Count 11.02 K/ul (4.8-10.8)
[2023-04-07 03:35] LABS: BUN Creatinine Ratio 18.7 (10-20); Calcium 8.5 mg/dl (8.6-10.3); Est GFR (African American) 89.1 ml/min; Est GFR (Non-African American) 76.9 ml/min; Potassium 3.8 mmol/L (3.5-5.1)
[2023-04-07 03:59] LABS: Partial Thromboplastin Ratio 2.7
[2023-04-07 04:08] LABS: Partial Thromboplastin Time 75.7 Seconds (21.0-31.0)
--- NOTE | 2023-04-07 08:04 | Hospitalist Progress Note ---
Date of Service April 07, 2023 Assessment & Plan (1) Multiple pulmonary emboli: Plan: Presented with SOB, INR subtherapeutic at 1.0, imaging with evidence of bilateral main pulmonary artery emboli with radiographic suggestion of right heart strain. Echocardiogram with evidence of grade 1 diastolic dysfunction, mild right ventricular dilation, moderately reduced right ventricular systolic function, and elevated RVSP. Noted on venous doppler to have a non-occlusive t hrombus to R popliteal vein and L peroneal vein, likely causing bilateral main pulmonary artery emboli. Unclear if patient was taking her Coumadin, however patient's caregivers/friends believe that she did not miss doses, but was taking a half tablet of her medication. Patient/caregivers endorse that she does sit a lot, though no specific prolonged traveling. Is on Coumadin for history of DVT/PE; do not see history of genetic condition on chart that would prevent her from being able to be on DOAC, therefore will transition tomorrow to Eliquis from Heparin gtt both for DVT/PE treatment but also because I believe this treatment regimen will be easier to maintain therapeutic levels, easier for patient/caregivers to maintain, and patient will not need frequent blood draws. She has been on Xarelto in the past, but cost changed while on medication making it prohibitive. Will need two step on discharge to see if she needs home O2. (2) COPD (chronic obstructive pulmonary disease): Plan: History of per chart, stopped smoking several years ago, has seen Pulm in the past. Not on daily inhalers. (3) Hyperlipidemia: Plan: Chronic. Stable. Continue Pravastatin. (4) Mixed Alzheimer's and vascular dementia: Plan: Patient is able to answer questions appropriately but is forgetful about certain details. Has not been on Aricept since February, will discontinue. Frequent orientation an delirium precautions. Has friends/neighbors who help with medications, bills, etc when necessary and are very involved. Plan PT and OT recommending return home. Home O2 qualify before discharge home. Admission and Anticipated Discharge Date Admission Date: April 06, 2023 Subjective Patient without acute events overnight. Today she does not endorse shortness of breath, though is on 2 L nasal cannula maintaining saturations of low 90s. Denies any chest pain, abdominal pain, nausea. Review of Systems Review of Systems: All systems reviewed & are unremarkable except as noted in Subjective Physical Exam Constitutional: WD/WN, vitals as above Respiratory: normal respiratory effort, lungs clear to auscultation Cardiovascular: RRR, no murmur, no edema Gastrointestinal (Abdomen): normal bowel sounds, soft, nontender, no hepatosplenomegaly Skin: no rashes, warm and dry Psychiatric: A+Ox3, euthymic affect Results & Data Results & Data Vital Signs (Past 12 Hours) Vital Signs Temp Pulse Pulse Resp BP BP Pulse Ox 04/07/23 07:46 76 04/07/23 07:28 36.4 C L 76 18 126/82 92 04/07/23 03:06 36.4 C L 76 18 132/83 91 04/06/23 23:06 04/06/23 23:02 96 H 04/06/23 22:51 36.3 C L 86 16 157/80 H 93 04/06/23 21:36 83 18 131/87 92 04/06/23 21:00 91 H 16 118/80 95 04/06/23 21:16 90 O2 Del Method O2 Flow Rate 04/07/23 07:46 04/07/23 07:28 Nasal Cannula 2 04/07/23 03:06 Nasal Cannula 2 04/06/23 23:06 Nasal Cannula 2 04/06/23 23:02 04/06/23 22:51 Room Air 2 04/06/23 21:36 Nasal Cannula 2 04/06/23 21:00 Room Air 04/06/23 21:16 Nasal Cannula 2 PG Care Time/CCT Total # of Minutes Spent Total Time Spent with Patient: Total time spent is greater than 50% in coordination of care (as documented) at patient's floor/unit and/or counseling patient: Coding Level of Care Code 26795 SUB INP/OBS CARE 3/50MIN Diagnoses Multiple pulmonary emboli I26.99 COPD (chronic obstructive pulmonary disease) J44.9 Hyperlipidemia E78.5 Mixed Alzheimer's and vascular dementia G30.9; F01.50; F02.80
[2023-04-07] MEDS ORDERED: DONEPEZIL HCL 5 MG TAB PO SCH (09:00)
--- NOTE | 2023-04-07 09:56 | XCELERA ---
[id number]
[2023-04-07 11:11] LABS: Partial Thromboplastin Ratio 2.4
[2023-04-07 11:12] LABS: Partial Thromboplastin Time 66.9 Seconds (21.0-31.0)
--- NOTE | 2023-04-07 12:07 | Electrocardiogram Report ---
Test Reason : Blood Pressure : / mmHG Vent. Rate : 100 BPM Atrial Rate : 100 BPM P-R Int : 198 ms QRS Dur : 074 ms QT Int : 346 ms P-R-T Axes : 068 038 071 degrees QTc Int : 446 ms Normal sinus rhythm Nonspecific T wave abnormality Abnormal ECG When compared with ECG of 17-DEC-2020 18:13, Nonspecific T wave abnormality now evident in Anterior leads Confirmed by Richie Garcia ([id number]) on 04/07/2023 12:07:09 PM Referred By: Bhupendra Lassiter Confirmed By:Josh Garcia
[2023-04-07] MEDS: HEPARIN SODIUM/DEXTROSE 25,000 UNITS/500 ML BAG IV SCH (18:21)
[2023-04-07] MEDS: PRAVASTATIN SOD 40 MG TAB PO SCH (20:05)
[2023-04-08 05:45] LABS: Partial Thromboplastin Ratio 2.6
[2023-04-08 06:04] LABS: Partial Thromboplastin Time 73.2 Seconds (21.0-31.0)
[2023-04-08] MEDS: APIXABAN 5 MG TABLET PO SCH ×2 (08:39→20:40)
--- NOTE | 2023-04-08 13:45 | Hospitalist Progress Note ---
Date of Service April 08, 2023 Assessment & Plan (1) Multiple pulmonary emboli: Plan: Presented with SOB, INR subtherapeutic at 1.0, imaging with evidence of bilateral main pulmonary artery emboli with radiographic suggestion of right heart strain. Echocardiogram with evidence of grade 1 diastolic dysfunction, mild right ventricular dilation, moderately reduced right ventricular systolic function, and elevated RVSP. Noted on venous doppler to have a non-occlusive t hrombus to R popliteal vein and L peroneal vein, likely causing bilateral main pulmonary artery emboli. Unclear if patient was taking her Coumadin (concern from PCP regarding medication compliance due to dementia), however patient's caregivers/friends believe that she did not miss doses, but was taking a half tablet of her medication. Patient/caregivers endorse that she does sit a lot, though no specific prolonged traveling. Is on Coumadin for history of DVT/PE; do not see history of genetic condition on chart that would prevent her from being able to be on DOAC, therefore transitioned today to Eliquis from Heparin gtt both for DVT/PE treatment but also because I believe this treatment regimen will be easier to maintain therapeutic levels, easier for patient/caregivers to maintain, and patient will not need frequent blood draws. She has been on Xarelto in the past, but cost changed while on medication making it prohibitive. Two step performed, requiring 2LNC with ambulation otherwise no oxygen needs. (2) COPD (chronic obstructive pulmonary disease): Plan: History of per chart, stopped smoking several years ago, has seen Pulm in the past. Not on daily inhalers. Oxygen as above, suspect COPD history put patient at greater risk of needing O2 with PE, supplemental O2 hopefully is temporary but with COPD history may be permanent. (3) Hyperlipidemia: Plan: Chronic. Stable. Continue Pravastatin. (4) Mixed Alzheimer's and vascular dementia: Plan: Patient is able to answer questions appropriately but is forgetful about certain details. Has not been on Aricept since February (was d/c'ed by PCP). Frequent orientation an delirium precautions. Has friends/neighbors who help with medications, bills, etc when necessary and are very involved. Recommend follow up with PCP regarding home safety, at this time I believe she has good social supports who have agreed to visit her daily and help with her medications as needed, but should patient's safety come into question she may require assisted living in the future vs. home health support. Plan PT and OT recommending return home. Home O2 qualify performed, 2LNC with ambulation for COPD/PE Admission and Anticipated Discharge Date Admission Date: April 06, 2023 Subjective No acute events overnight, breathing "ok" when in bed, little more breathless with walking to the bathroom and in the halls. No chest pain, palpitations, leg pain. Review of Systems Review of Systems: All systems reviewed & are unremarkable except as noted in Subjective Physical Exam Constitutional: WD/WN, vitals as above Respiratory: normal respiratory effort, lungs clear to auscultation Cardiovascular: RRR, no murmur, no edema Gastrointestinal (Abdomen): normal bowel sounds, soft, nontender, no hepatosplenomegaly Skin: no rashes, warm and dry Psychiatric: A+Ox3, euthymic affect Results & Data Results & Data Vital Signs (Past 12 Hours) Vital Signs Temp Pulse Pulse Pulse Pulse Pulse Resp 04/08/23 12:25 36.6 C 74 18 04/08/23 11:55 36.6 C 74 18 04/08/23 11:21 110 H 108 H 98 H 04/08/23 08:00 58 L 04/08/23 07:32 36.4 C L 70 17 04/08/23 03:52 36.5 C 74 18 Resp Resp Resp BP BP Pulse Ox Pulse Ox 04/08/23 12:25 126/82 119/74 94 04/08/23 11:55 119/74 94 04/08/23 11:21 22 23 18 92 04/08/23 08:00 04/08/23 07:32 111/74 95 04/08/23 03:52 118/76 96 Pulse Ox Pulse Ox O2 Del Method O2 Flow Rate O2 Flow Rate 04/08/23 12:25 04/08/23 11:55 Nasal Cannula 2.0 04/08/23 11:21 86 L 91 2 04/08/23 08:00 04/08/23 07:32 Nasal Cannula 2.0 04/08/23 03:52 Nasal Cannula PG Care Time/CCT Total # of Minutes Spent Total Time Spent with Patient: Total time spent is greater than 50% in coordination of care (as documented) at patient's floor/unit and/or counseling patient: Coding Level of Care Code 30864 SUB INP/OBS CARE 2/35MIN Diagnoses Multiple pulmonary emboli I26.99 COPD (chronic obstructive pulmonary disease) J44.9 Hyperlipidemia E78.5 Mixed Alzheimer's and vascular dementia G30.9; F01.50; F02.80
[2023-04-08] MEDS: PRAVASTATIN SOD 40 MG TAB PO SCH (20:40)
--- NOTE | 2023-04-09 07:14 | Discharge Summary ---
Discharge Summary Date of Service April 09, 2023 Admission HPI Per Admitting Provider Shantal Delatorre is a 77yo female presenting with two days of progressive shortness of breath and LITTLE. She has a history of COPD (no home therapies or oxygen), GERD, HTN, HLP, Memory deficit and recurrent DVTs (femoral DVT). Patient is on Coumadin therapy and has had some difficulty taking it as prescribed due to poor memory and cognitive decline. She was previously taking too much Coumadin and had a supratherapeutic INR with hematuria. More recently she reports that she ran out of her Coumadin approximately 1 month ago and hasn't taken it. Patient reports that two days ago she was sitting and watching television when she became acutely short of breath. She got up and tried to walk to the bathroom and felt very dyspneic. Her shortness of breath continued and became more severe to the point that she was not eating because she was too short of breath to walk to the kitchen. She denies chest pain, pleuritic discomfort, cough, hemoptysis, dizziness or s yncope. She denies LE edema. No additional complaints - she specifically denies fever, chills, abdominal pain, nausea, vomiting, diarrhea or constipation. No recent illness, URI or wheeze. No recent surgery or prolonged immobility. In the ER patient is afebrile, tachycardic on arrival with heart rate of 108 bpm. Hypoxic with saturation of 86% on room air. She has since been placed on supplemental O2 by NC with improvement. Currently 92% on 2L. Blood pressure has been stable. ER Course: Heparin drip Albuterol Neb Admission Exam Per Admitting Provider General: patient resting comfortably, NAD, non-toxic in appearance, answering questions appropriately and following commands Skin: warm, dry, intact, no rashes or lesions HEENT: NC/AT, PERRL, EOMI, anicteric sclera, conjunctiva without injection, external ear normal to inspection and nontender, nares patent, moist mucus membranes, dentition intact, no oropharyngeal lesions, neck supple, trachea midline, no LAD, no thyromegaly, no JVD Heart: +S1/S2, regular, no m/r/g Lungs: equal air entry bilaterally, no rhonchi or wheezes, mild end-inspiratory crackles in bilateral bases Abd: +BS, soft, NT/ND, no masses/organomegaly/ascites Ext: warm, 2+ pulses in UE/LE bilaterally, no clubbing/cyanosis, mild swelling of RLE with some varicosities. Neuro: nonfocal, speech intact, no facial droop, moving all extremities on command with equal strength 5/5 Principal Dx & Hospital Course #1 = Principal Diagnosis (1) Multiple pulmonary emboli: Presented with SOB, INR subtherapeutic at 1.0, imaging with evidence of bilateral main pulmonary artery emboli with radiographic suggestion of right heart strain. Echocardiogram with evidence of grade 1 diastolic dysfunction, mild right ventricular dilation, moderately reduced right ventricular systolic function, and elevated RVSP. Noted on venous doppler to have a non-occlusive thrombus to R popliteal vein and L peroneal vein, likely cause of bilateral main pulmonary artery emboli. Unclear if patient was taking her Coumadin (concern from PCP regarding medication compliance due to dementia); patient's caregivers/friends believe that she did not miss doses, but was taking a half tablet of her medication. Patient/caregivers endorse that she does sit a lot, though no specific prolonged traveling. Is on Coumadin for history of DVT/PE; do not see history of genetic condition on chart that would prevent her from being able to be on DOAC, therefore transitioned to Eliquis from Heparin gtt both for DVT/PE treatment but also because I believe this treatment regimen will be easier to maintain therapeutic levels, easier for patient/caregivers to maintain, and patient will not need frequent blood draws. Two step performed, requiring 2LNC with ambulation otherwise no oxygen needs. PT and OT recommended home on discharge; did discuss with patient and her friends/caregivers that if her physical or mental status were to continue to decline that she may benefit from personal care/ usp. (2) COPD (chronic obstructive pulmonary disease): History of per chart, stopped smoking several years ago, has seen Pulm in the past. Not on daily inhalers. Oxygen as above, suspect COPD history put patient at greater risk of needing O2 with PE, supplemental O2 hopefully is temporary but with COPD history may be permanent. (3) Mixed Alzheimer's and vascular dementia: Patient is able to answer questions appropriately but is forgetful about certain details. Has not been on Aricept since February (was d/c'ed by PCP). Has friends/neighbors who help with medications, bills, etc when necessary and are very involved. Recommend follow up with PCP (with her caregivers present) regarding home safety, at this time I believe she has good social supports who have agreed to visit her daily and help with her medications as needed, but should patient's safety come into question she may require assisted living in the future vs. home health support. (4) Hyperlipidemia: Chronic. Stable. Continue Pravastatin. Plan PT and OT recommending return home. Home O2 qualify performed, 2LNC with ambulation for COPD/PE Discharge Exam Constitutional WD/WN, vitals as above Respiratory normal respiratory effort, lungs clear to auscultation Psychiatric A+Ox3, euthymic affect Updated Medication List Medication Instructions Recorded Confirmed Type cholecalciferol (vitamin D3) 50 2,000 unit PO DAILY 11/17/20 04/06/23 History mcg (2,000 unit) tablet naproxen sodium 220 mg capsule 220 mg PO BID PRN Pain 11/17/20 04/06/23 History (Aleve) pravastatin 40 mg tablet 40 mg PO HS #90 tabs 09/28/22 04/06/23 Rx apixaban 5 mg tablet (Eliquis) See Rx Instructions .Route 04/08/23 Rx .COMPLEX #74 tabs Hospital Stay Data Consultations 04/06/23 20:46 ED Decision to Admit Stat Diagnostic Imagining Performed 04/06/23 18:08 CT angio chest PE protocol Stat 04/06/23 21:15 US venous doppler LE BI Stat Pending Results Patient Have Any Pending Studies at Discharge: No Discharge Instructions Given to Patient (Per Discharging Provider) You were admitted to the hospital for evaluation and management of difficulty with breathing. You were found to have blood clots in your leg and in your lungs, which prevent good blood flow and therefore oxygenation to your body. Due to this, you are requiring a bit of oxygen through your nose. Your INR was not at a therapeutic level when the blood clots happened, given this, we have transitioned you to Eliquis which is a twice a day pill, and your dose will never change after the first 10 days. For the first 10 days, your dose will be 10 mg (2 pills) twice daily. Following that, your dose will be 5 mg (1 pill) twice daily, and you will be on this indefinitely. The prescription was sent to your preferred pharmacy. While you are on blood thinners, if you have aches and pains, try taking Tylenol first instead of naproxen, ibuprofen, or Aleve, as these two medications together can put you at increased bleeding risk. If you have a fall on blood thinners, and especially if you hit your head or lose consciousness, you should get evaluated by a doctor right away. THROW AWAY YOUR COUMADIN You should have follow-up with Dr. Lassiter in the near future to go over your medication changes, and see how you are feeling. We do not expect that you will need oxygen forever, but this can sometimes be the case. Be mindful and careful of the tubing and go slow, as you are requiring oxygen with walking. If you have worsening of your breathing symptoms, chest pain, or other urgent acute medical concerns, please seek urgent medical evaluation. Otherwise direct any medical questions to Dr. Lassiter. Total Time Total Time Spent Total Time Spent (In Minutes): 40 min Coding Level of Care Code 19483 INP/OBS DISCH >30 MIN Diagnoses Multiple pulmonary emboli I26.99 COPD (chronic obstructive pulmonary disease) J44.9 Mixed Alzheimer's and vascular dementia G30.9; F01.50; F02.80 Hyperlipidemia E78.5
[2023-04-09] MEDS: APIXABAN 5 MG TABLET PO SCH (08:13)
[2023-04-15] MEDS ORDERED: APIXABAN 5 MG TABLET PO SCH (09:00)
== END 2023-04-09 13:55 | disposition home or self-care (01) | DRG 299 ==
LOC: ED 17:17 → SUATTDRO 21:15 → 4W 21:15